=== PATIENT | female | born 1960 | race Caucasian/White ===

== ENCOUNTER 2017-03-29 15:47 | Inpatient (IN) | payer MEDICARE, MEDICAID ==
[2017-03-29] MEDS: SOD CHLORIDE 0.9% 1,000 ML IV ×2 (16:24)
[2017-03-29 16:30] LABS: ADD MAN DIFF? NO
[2017-03-29 16:36] LABS: BASOPHIL # 0.1 10^3/ul (0.0-0.1); BASOPHILS % 0.3 % (0.0-2.0); EOSINOPHILS # 0.7 10^3/ul (0.0-0.5); EOSINOPHILS % 3.9 % (0.0-7.0); HEMATOCRIT 30.2 % (37.0-47.0); HEMOGLOBIN 9.5 g/dl (12.0-16.0); LYMPHOCYTES # 1.4 10^3/ul (0.8-2.9); LYMPHOCYTES % 7.7 % (15.0-51.0); MEAN CORPUSCULAR HEMOGLOBIN 30.5 pg (29.0-33.0); MEAN CORPUSCULAR HGB CONC 31.5 g/dl (32.0-37.0); MEAN CORPUSCULAR VOLUME 97.1 fl (82.0-101.0); MEAN PLATELET VOLUME 8.8 fl (7.4-10.4); MONOCYTE # 0.8 10^3/ul (0.3-0.9); MONOCYTES % 4.6 % (0.0-11.0); NEUTROPHIL # 14.9 10^3/ul (1.6-7.5); NEUTROPHILS % 82.9 % (39.0-77.0); PLATELET COUNT 439 10^3/UL (140-415); RED BLOOD COUNT 3.11 10^6/ul (4.20-5.40); RED CELL DISTRIBUTION WIDTH 12.8 % (11.5-14.5)
[2017-03-29 16:49] LABS: LACTIC ACID 0.8 mmol/L (0.5-2.0)
[2017-03-29 16:51] LABS: INR 0.96; PROTIME 12.9 Sec (11.9-14.9)
[2017-03-29 16:52] LABS: PARTIAL THROMBOPLASTIN TIME 35.5 Sec (25.0-35.0)
[2017-03-29] MEDS: AZTREONAM 1 GM/NS (PMX) 50 ML IVPB (16:55)
[2017-03-29 16:56] LABS: ALANINE AMINOTRANSFERASE 28 IU/L (13-69); ALBUMIN 4.2 g/dl (3.3-4.9); ALBUMIN/GLOBULIN RATIO 1.05; ALKALINE PHOSPHATASE 72 IU/L (42-121); ANION GAP 17 (8-16); ASPARTATE AMINO TRANSFERASE 31 IU/L (15-46); BLOOD UREA NITROGEN 23 mg/dl (7-20); CALCIUM 9.6 mg/dl (8.4-10.2); CARBON DIOXIDE 30 mmol/L (21-31); CHLORIDE 99 mmol/L (97-110); CREATININE 0.99 mg/dl (0.44-1.00); GLUCOSE 103 mg/dl (70-220); POTASSIUM 4.8 mmol/L (3.5-5.1); SODIUM 141 mmol/L (135-144); TOTAL PROTEIN 8.2 g/dl (6.1-8.1)
[2017-03-29 17:10] LABS: TROPONIN-I < 0.012 ng/ml (0.00-0.12)
[2017-03-29] MEDS: VANCOMYCIN 1 GM (PMX) 250 ML IVPB (17:19)
[2017-03-29] MEDS ORDERED: ONDANSETRON 4 MG INJ IV (18:00)
[2017-03-29] MEDS ORDERED: ACETAMINOPHEN 325 MG TAB PO (18:00)
[2017-03-29] MEDS ORDERED: ACETAMINOPHEN 325 MG TAB GTB (18:00)
[2017-03-29] MEDS ORDERED: VANCOMYCIN IV PER PHARMACY XX (18:30)
[2017-03-29 19:32] LABS: AADO2 Arterial 164.3 mmHg (7.0-24.0); Allen Test ACCEPTAB; Arterial Base Excess -1.1 mmol/L (-3.0-3); Arterial COHb 0.3 % (0.0-3.0); Arterial Fraction of Oxyhgb 95.5 % (93.0-99.0); Arterial HCO3 28.8 mmol/L (22.0-26.0); Arterial MetHb 0.2 % (0.0-1.5); Arterial Total Hemglobin 10.7 g/dl (12.0-18.0); Arterial pCO2 81.1 mmhg (35-45); MODE VENT - AC; Site Right Radial
[2017-03-29] MEDS: LORAZEPAM 2 MG INJ IV (19:52)
[2017-03-29 20:44] LABS: LACTIC ACID 1.2 mmol/L (0.5-2.0)
[2017-03-29 22:00] LABS: Allen Test ACCEPTAB; Arterial Blood Gas Oxygen Sat 98.7 mmHG (95.0-98.0); Arterial COHb 0.3 % (0.0-3.0); Arterial Fraction of Oxyhgb 98.1 % (93.0-99.0); Arterial HCO3 28.7 mmol/L (22.0-26.0); Arterial MetHb 0.3 % (0.0-1.5); MODE VENT - AC; Site Right Radial
[2017-03-29 23:00] LABS: LACTIC ACID 1.3 mmol/L (0.5-2.0)
[2017-03-30 00:07] LABS: ADD UMIC YES; UR AMORPHOUS CRYSTAL FEW /HPF (NONE SEEN); UR ASCORBIC ACID 40 mg/dL (NEGATIVE); UR BACTERIA FEW /HPF (NONE SEEN); UR BILIRUBIN (Dip) NEGATIVE (NEGATIVE); UR BLOOD (Dip) 3+ mg/dL (NEGATIVE); UR CLARITY CLOUDY (CLEAR); UR COLOR YELLOW (YELLOW); UR GLUCOSE (Dip) NEGATIVE (NEGATIVE); UR KETONES (Dip) NEGATIVE (NEGATIVE); UR LEUKOCYTE ESTERASE (Dip) 2+ Leu/ul (NEGATIVE); UR MUCUS FEW /HPF (NONE SEEN); UR NITRITE (Dip) NEGATIVE (NEGATIVE); UR RBC > 182 /HPF (0-5); UR SPECIFIC GRAVITY (Dip) 1.015 (1.003-1.030); UR TOTAL PROTEIN (Dip) 2+ mg/dl (NEGATIVE); UR UROBILINOGEN (Dip) NEGATIVE (NEGATIVE); UR WBC 25 /HPF (0-5)
[2017-03-30] MEDS: ALBUTEROL/IPRATROPIUM (NEB) 3 ML AMP HHN ×6 (01:00→21:12)
[2017-03-30] MEDS: LORAZEPAM 2 MG INJ IV ×3 (01:31→20:33)
[2017-03-30] MEDS: METHYLPREDNISOLONE 125 MG INJ IV ×5 (01:41→23:52)
[2017-03-30] MEDS: AZTREONAM 1 GM/NS (PMX) 50 ML IVPB ×2 (03:44→12:04)
[2017-03-30] MEDS: VANCOMYCIN 750 MG in DEXTROSE 5% 150 ML IVPB ×2 (04:39→17:54)
[2017-03-30] MEDS: PANTOPRAZOLE (EC) 40 MG TAB PO ×2 (05:37→17:54)
[2017-03-30 07:58] LABS: ADD MAN DIFF? NO
[2017-03-30] MEDS ORDERED: ACETAMINOPHEN 325 MG TAB GTB (08:00)
[2017-03-30] MEDS ORDERED: NITROGLYCERIN (SL) 0.4 MG TAB SL (08:00)
[2017-03-30 08:16] LABS: WHITE BLOOD COUNT 15.8 10^3/ul (4.8-10.8)
[2017-03-30 08:16] LABS: ABNORMAL IP MESSAGE 1; HEMOGLOBIN 8.8 g/dl (12.0-16.0); MEAN CORPUSCULAR HEMOGLOBIN 31.2 pg (29.0-33.0); MEAN CORPUSCULAR HGB CONC 31.4 g/dl (32.0-37.0); MEAN CORPUSCULAR VOLUME 99.3 fl (82.0-101.0); MEAN PLATELET VOLUME 8.9 fl (7.4-10.4); PLATELET COUNT 318 10^3/UL (140-415); RED BLOOD COUNT 2.82 10^6/ul (4.20-5.40); RED CELL DISTRIBUTION WIDTH 12.6 % (11.5-14.5)
[2017-03-30 08:36] LABS: POSITIVE DIFF @See below
[2017-03-30 08:37] LABS: ANION GAP 16 (8-16); BLOOD UREA NITROGEN 22 mg/dl (7-20); CALCIUM 8.4 mg/dl (8.4-10.2); CARBON DIOXIDE 23 mmol/L (21-31); CHLORIDE 105 mmol/L (97-110); GLUCOSE 134 mg/dl (70-220); MAGNESIUM 1.6 mg/dl (1.7-2.5); PHOSPHORUS 3.8 mg/dl (2.5-4.9); POTASSIUM 4.1 mmol/L (3.5-5.1); SODIUM 140 mmol/L (135-144)
[2017-03-30] MEDS: LEVETIRACETAM (100 MG/ML) 5ML CUP GTB ×2 (10:36→21:07)
[2017-03-30] MEDS: FERROUS SULFATE 60 MG/ML 5ML CUP GTB ×2 (10:36→21:07)
[2017-03-30] MEDS: FOLIC ACID 1 MG TAB GTB (10:37)
[2017-03-30] MEDS: ASCORBIC ACID 500 MG TAB GTB (10:37)
[2017-03-30] MEDS: THIAMINE 100 MG TAB GTB (10:37)
[2017-03-30] MEDS: MULTIVITAMINS 30 ML CUP GTB (10:37)
[2017-03-30] MEDS: QUETIAPINE 25 MG TAB GTB ×2 (10:38→21:07)
[2017-03-30] MEDS: HEPARIN 5,000 UNIT/0.5 ML VIAL SC ×2 (10:43→21:09)
[2017-03-30] MEDS: HYDROCODONE/APAP (10/325) TAB GTB ×3 (10:49→22:10)
[2017-03-30] MEDS: BUDESONIDE (NEB) 0.5MG/2ML AMP INH ×2 (11:17→21:26)
[2017-03-30 13:55] LABS: LYMPHOCYTES #M 0.3 10^3/ul (0.8-2.9); LYMPHOCYTES % (M) 2 % (15-51); PLATELET ESTIMATE NORMAL; POLYCHROMASIA 1+ (0-0); REACTIVE LYMPHOCYTES #M 0.1 10^3/ul (0.0-0.0); REACTIVE LYMPHOCYTES% (M) 1 % (0-0); SEGMENTED NEUTROPHILS (M) % 97 % (39-77); SMUDGE%M 1 % (0-0); TOXIC GRANULATION 1+ (0-0)
[2017-03-30] MEDS: MEROPENEM 1 GM/50ML(PMX) 50 ML IVPB (21:00)
[2017-03-30] MEDS: ZINC OXIDE 20% 30 GM OINT TOP (21:07)
[2017-03-31] MEDS: LORAZEPAM 1 MG TAB GTB ×2 (00:14→21:16)
[2017-03-31] MEDS: ALBUTEROL/IPRATROPIUM (NEB) 3 ML AMP HHN ×6 (01:34→21:37)
[2017-03-31] MEDS: LORAZEPAM 2 MG INJ IV ×3 (04:05→16:13)
[2017-03-31] MEDS: HYDROCODONE/APAP (5/325) TAB GTB ×2 (04:06→17:30)
[2017-03-31] MEDS: VANCOMYCIN 750 MG in DEXTROSE 5% 150 ML IVPB ×2 (04:48→17:30)
[2017-03-31 05:44] LABS: AADO2 Arterial 127.2 mmHg (7.0-24.0); Allen Test ACCEPTAB; Arterial Base Excess -1.6 mmol/L (-3.0-3); Arterial Blood Gas Oxygen Sat 98.1 mmHG (95.0-98.0); Arterial COHb 0.3 % (0.0-3.0); Arterial Fraction of Oxyhgb 97.5 % (93.0-99.0); Arterial HCO3 23.3 mmol/L (22.0-26.0); Arterial MetHb 0.3 % (0.0-1.5); Arterial Total Hemglobin 7.7 g/dl (12.0-18.0); Blood Gas Low PEEP Setting 0 cmH2O; MODE VENT - AC; Site Right Radial
[2017-03-31] MEDS: METHYLPREDNISOLONE 125 MG INJ IV ×3 (05:45→17:30)
[2017-03-31] MEDS: PANTOPRAZOLE (EC) 40 MG TAB PO ×2 (05:45→17:30)
[2017-03-31] MEDS: LEVETIRACETAM (100 MG/ML) 5ML CUP GTB ×2 (09:21→21:00)
[2017-03-31] MEDS: MULTIVITAMINS 30 ML CUP GTB (09:21)
[2017-03-31] MEDS: HYDROCODONE/APAP (5/325) TAB PO ×2 (09:21→14:14)
[2017-03-31] MEDS: FERROUS SULFATE 60 MG/ML 5ML CUP GTB ×2 (09:21→21:00)
[2017-03-31] MEDS: ASCORBIC ACID 500 MG TAB GTB (09:21)
[2017-03-31] MEDS: ZINC OXIDE 20% 30 GM OINT TOP ×2 (09:21→21:05)
[2017-03-31] MEDS: FOLIC ACID 1 MG TAB GTB (09:22)
[2017-03-31] MEDS: QUETIAPINE 25 MG TAB GTB ×2 (09:22→21:01)
[2017-03-31] MEDS: THIAMINE 100 MG TAB GTB (09:22)
[2017-03-31] MEDS: HEPARIN 5,000 UNIT/0.5 ML VIAL SC ×2 (09:26→21:02)
[2017-03-31] MEDS: MEROPENEM 1 GM/50ML(PMX) 50 ML IVPB ×2 (09:28→21:06)
[2017-03-31] MEDS: BUDESONIDE (NEB) 0.5MG/2ML AMP INH ×2 (09:38→21:43)
[2017-03-31] MEDS: HYDROCODONE/APAP (10/325) TAB GTB ×2 (13:25→17:31)
[2017-03-31 16:33] LABS: ADD MAN DIFF? NO
[2017-03-31 16:42] LABS: WHITE BLOOD COUNT 9.7 10^3/ul (4.8-10.8)
[2017-03-31 16:42] LABS: ABNORMAL IP MESSAGE 1; HEMATOCRIT 25.1 % (37.0-47.0); LYMPHOCYTES # 0.3 10^3/ul (0.8-2.9); LYMPHOCYTES % 3.5 % (15.0-51.0); MEAN CORPUSCULAR HEMOGLOBIN 31.1 pg (29.0-33.0); MEAN CORPUSCULAR HGB CONC 31.9 g/dl (32.0-37.0); MEAN CORPUSCULAR VOLUME 97.7 fl (82.0-101.0); MEAN PLATELET VOLUME 9.2 fl (7.4-10.4); MONOCYTE # 0.2 10^3/ul (0.3-0.9); MONOCYTES % 2.2 % (0.0-11.0); NEUTROPHILS % 93.5 % (39.0-77.0); NUCLEATED RED BLOOD CELLS% 0.2 /100WBC (0.0-0.0); PLATELET COUNT 334 10^3/UL (140-415); RED BLOOD COUNT 2.57 10^6/ul (4.20-5.40); RED CELL DISTRIBUTION WIDTH 12.6 % (11.5-14.5)
[2017-03-31 16:53] LABS: POSITIVE DIFF @See below
[2017-03-31 17:03] LABS: LACTIC ACID 1.8 mmol/L (0.5-2.0)
[2017-03-31 17:09] LABS: ANION GAP 15 (8-16); BLOOD UREA NITROGEN 35 mg/dl (7-20); CALCIUM 9.1 mg/dl (8.4-10.2); CARBON DIOXIDE 23 mmol/L (21-31); CHLORIDE 107 mmol/L (97-110); CREATININE 0.83 mg/dl (0.44-1.00); GLUCOSE 146 mg/dl (70-220); MAGNESIUM 1.7 mg/dl (1.7-2.5); PHOSPHORUS 2.6 mg/dl (2.5-4.9); POTASSIUM 3.9 mmol/L (3.5-5.1); SODIUM 141 mmol/L (135-144)
[2017-03-31 17:13] LABS: VANCOMYCIN,TROUGH 18.3 ug/ml (10.0-20.0)
[2017-03-31 18:00] LABS: HIV 1&2 ANTIBODY NEGATIVE (NEGATIVE)
[2017-03-31 18:00] LABS: HEPATITIS C VIRAL ANTIBODY REACTIVE (NEGATIVE)
[2017-04-01] MEDS: METHYLPREDNISOLONE 125 MG INJ IV ×4 (00:34→17:26)
[2017-04-01] MEDS: ALBUTEROL/IPRATROPIUM (NEB) 3 ML AMP HHN ×6 (01:00→20:05)
[2017-04-01] MEDS: HYDROCODONE/APAP (5/325) TAB PO ×4 (04:50→18:05)
[2017-04-01] MEDS: VANCOMYCIN 750 MG in DEXTROSE 5% 150 ML IVPB (04:58)
[2017-04-01] MEDS: PANTOPRAZOLE (EC) 40 MG TAB PO ×2 (05:49→17:26)
[2017-04-01] MEDS: BUDESONIDE (NEB) 0.5MG/2ML AMP INH ×3 (08:26→21:16)
[2017-04-01] MEDS: LEVETIRACETAM (100 MG/ML) 5ML CUP GTB ×2 (08:56→21:06)
[2017-04-01] MEDS: FERROUS SULFATE 60 MG/ML 5ML CUP GTB ×2 (08:56→21:06)
[2017-04-01] MEDS: MULTIVITAMINS 30 ML CUP GTB (08:56)
[2017-04-01 08:57] LABS: ADD MAN DIFF? NO
[2017-04-01] MEDS: FOLIC ACID 1 MG TAB GTB (08:57)
[2017-04-01] MEDS: ZINC OXIDE 20% 30 GM OINT TOP ×2 (08:57→21:08)
[2017-04-01] MEDS: THIAMINE 100 MG TAB GTB (08:57)
[2017-04-01] MEDS: LORAZEPAM 2 MG INJ IV ×3 (08:57→21:08)
[2017-04-01] MEDS: ASCORBIC ACID 500 MG TAB GTB (08:57)
[2017-04-01] MEDS: QUETIAPINE 25 MG TAB GTB ×2 (08:57→21:06)
[2017-04-01] MEDS: HEPARIN 5,000 UNIT/0.5 ML VIAL SC ×2 (08:58→21:09)
[2017-04-01 09:13] LABS: WHITE BLOOD COUNT 7.1 10^3/ul (4.8-10.8)
[2017-04-01 09:13] LABS: ABNORMAL IP MESSAGE 1; HEMATOCRIT 25.7 % (37.0-47.0); HEMOGLOBIN 8.2 g/dl (12.0-16.0); LYMPHOCYTES # 0.5 10^3/ul (0.8-2.9); LYMPHOCYTES % 7.3 % (15.0-51.0); MEAN CORPUSCULAR HEMOGLOBIN 30.9 pg (29.0-33.0); MEAN CORPUSCULAR HGB CONC 31.9 g/dl (32.0-37.0); MEAN PLATELET VOLUME 9.3 fl (7.4-10.4); MONOCYTE # 0.2 10^3/ul (0.3-0.9); MONOCYTES % 3.2 % (0.0-11.0); NEUTROPHIL # 6.3 10^3/ul (1.6-7.5); NEUTROPHILS % 88.7 % (39.0-77.0); PLATELET COUNT 339 10^3/UL (140-415); RED BLOOD COUNT 2.65 10^6/ul (4.20-5.40); RED CELL DISTRIBUTION WIDTH 12.8 % (11.5-14.5)
[2017-04-01 09:21] LABS: POSITIVE DIFF @See below
[2017-04-01 09:36] LABS: ANION GAP 15 (8-16); BLOOD UREA NITROGEN 36 mg/dl (7-20); CALCIUM 9.1 mg/dl (8.4-10.2); CARBON DIOXIDE 25 mmol/L (21-31); CHLORIDE 106 mmol/L (97-110); CREATININE 0.71 mg/dl (0.44-1.00); GLUCOSE 124 mg/dl (70-220); MAGNESIUM 1.7 mg/dl (1.7-2.5); PHOSPHORUS 2.9 mg/dl (2.5-4.9); POTASSIUM 3.8 mmol/L (3.5-5.1); SODIUM 142 mmol/L (135-144)
[2017-04-01] MEDS: MEROPENEM 1 GM/50ML(PMX) 50 ML IVPB ×2 (11:13→21:11)
[2017-04-01] MEDS: AMLODIPINE 10 MG TAB GTB (11:14)
[2017-04-01] MEDS: INFLUENZA VIRUS VACCINE 0.5 ML (DISPENSING) IM* (11:15)
[2017-04-01] MEDS: MAGNESIUM SULFATE 2 GM/50 ML 50 ML IVPB (12:45)
[2017-04-01] MEDS: METOPROLOL 25 MG TAB PO ×2 (12:45→21:07)
[2017-04-01] MEDS: POTASSIUM CHLORIDE 20 MEQ POWDER FOR ORAL SOLN GTB (12:45)
[2017-04-01] MEDS: VANCOMYCIN 500MG/NS (PMX) 100 ML IVPB (17:26)
[2017-04-01] MEDS: LORAZEPAM 1 MG TAB GTB (18:05)
[2017-04-01] MEDS: MUPIROCIN 2% 22 GM OINT TOP (21:07)
[2017-04-01] MEDS ORDERED: VANCOMYCIN 1 GM 250 ML IVPB (22:00)
[2017-04-01] MEDS: ACETAMINOPHEN 650MG/20.3ML CUP GTB (22:03)
[2017-04-02] MEDS: ALBUTEROL/IPRATROPIUM (NEB) 3 ML AMP HHN ×6 (00:07→22:16)
[2017-04-02] MEDS: METHYLPREDNISOLONE 125 MG INJ IV ×4 (00:41→18:21)
[2017-04-02] MEDS: LORAZEPAM 1 MG TAB GTB ×3 (01:55→21:21)
[2017-04-02] MEDS: PANTOPRAZOLE (EC) 40 MG TAB PO ×2 (05:04→18:21)
[2017-04-02] MEDS: VANCOMYCIN 500MG/NS (PMX) 100 ML IVPB ×2 (05:05→18:22)
[2017-04-02] MEDS: HYDROCODONE/APAP (5/325) TAB PO ×3 (05:47→22:14)
[2017-04-02 08:37] LABS: ADD MAN DIFF? NO
[2017-04-02 08:41] LABS: ABNORMAL IP MESSAGE 1; BASOPHILS % 0.2 % (0.0-2.0); HEMATOCRIT 25.8 % (37.0-47.0); HEMOGLOBIN 8.5 g/dl (12.0-16.0); LYMPHOCYTES # 0.5 10^3/ul (0.8-2.9); LYMPHOCYTES % 8.5 % (15.0-51.0); MEAN CORPUSCULAR HEMOGLOBIN 31.5 pg (29.0-33.0); MEAN CORPUSCULAR HGB CONC 32.9 g/dl (32.0-37.0); MEAN CORPUSCULAR VOLUME 95.6 fl (82.0-101.0); MONOCYTE # 0.2 10^3/ul (0.3-0.9); MONOCYTES % 3.4 % (0.0-11.0); NEUTROPHIL # 5.4 10^3/ul (1.6-7.5); NEUTROPHILS % 86.3 % (39.0-77.0); PLATELET COUNT 318 10^3/UL (140-415); RED CELL DISTRIBUTION WIDTH 12.7 % (11.5-14.5)
[2017-04-02 08:41] LABS: WHITE BLOOD COUNT 6.2 10^3/ul (4.8-10.8)
[2017-04-02 08:48] LABS: POSITIVE DIFF @See below
[2017-04-02] MEDS: ASCORBIC ACID 500 MG TAB GTB (08:49)
[2017-04-02] MEDS: FOLIC ACID 1 MG TAB GTB (08:50)
[2017-04-02] MEDS: THIAMINE 100 MG TAB GTB (08:50)
[2017-04-02] MEDS: METOPROLOL 25 MG TAB PO ×2 (08:50→21:21)
[2017-04-02] MEDS: LEVETIRACETAM (100 MG/ML) 5ML CUP GTB ×2 (08:51→21:20)
[2017-04-02] MEDS: FERROUS SULFATE 60 MG/ML 5ML CUP GTB ×2 (08:51→21:20)
[2017-04-02] MEDS: QUETIAPINE 25 MG TAB GTB ×2 (08:51→21:20)
[2017-04-02] MEDS: AMLODIPINE 10 MG TAB GTB (08:51)
[2017-04-02] MEDS: MULTIVITAMINS 30 ML CUP GTB (08:51)
[2017-04-02] MEDS: ZINC OXIDE 20% 30 GM OINT TOP ×2 (08:52→21:22)
[2017-04-02] MEDS: MUPIROCIN 2% 22 GM OINT TOP ×2 (08:52→21:22)
[2017-04-02] MEDS: HEPARIN 5,000 UNIT/0.5 ML VIAL SC ×2 (09:07→21:33)
[2017-04-02 09:16] LABS: ANION GAP 16 (8-16); BLOOD UREA NITROGEN 30 mg/dl (7-20); CALCIUM 8.5 mg/dl (8.4-10.2); CARBON DIOXIDE 24 mmol/L (21-31); CHLORIDE 107 mmol/L (97-110); CREATININE 0.69 mg/dl (0.44-1.00); GLUCOSE 119 mg/dl (70-220); MAGNESIUM 2.1 mg/dl (1.7-2.5); PHOSPHORUS 2.9 mg/dl (2.5-4.9); POTASSIUM 3.8 mmol/L (3.5-5.1); SODIUM 143 mmol/L (135-144)
[2017-04-02] MEDS: MEROPENEM 1 GM/50ML(PMX) 50 ML IVPB ×2 (09:18→22:14)
[2017-04-02] MEDS: LORAZEPAM 2 MG INJ IV ×2 (09:18→18:21)
[2017-04-02] MEDS: HYDROCODONE/APAP (10/325) TAB GTB ×2 (10:40→14:33)
[2017-04-02] MEDS: BUDESONIDE (NEB) 0.5MG/2ML AMP INH ×2 (11:29→22:17)
[2017-04-03] MEDS: METHYLPREDNISOLONE 125 MG INJ IV ×3 (00:21→11:23)
[2017-04-03] MEDS: LORAZEPAM 2 MG INJ IV ×2 (00:21→06:10)
[2017-04-03] MEDS: ALBUTEROL/IPRATROPIUM (NEB) 3 ML AMP HHN ×5 (01:35→16:30)
[2017-04-03 05:50] LABS: VANCOMYCIN,TROUGH 12.2 ug/ml (10.0-20.0)
[2017-04-03] MEDS: PANTOPRAZOLE (EC) 40 MG TAB PO (06:10)
[2017-04-03] MEDS: HYDROCODONE/APAP (5/325) TAB PO (06:10)
[2017-04-03] MEDS: VANCOMYCIN 500MG/NS (PMX) 100 ML IVPB ×2 (06:12→16:08)
[2017-04-03] MEDS: BUDESONIDE (NEB) 0.5MG/2ML AMP INH (08:54)
[2017-04-03] MEDS: LIDOCAINE 5% PATCH TD (09:48)
[2017-04-03] MEDS: LEVETIRACETAM (100 MG/ML) 5ML CUP GTB (09:49)
[2017-04-03] MEDS: FERROUS SULFATE 60 MG/ML 5ML CUP GTB (09:49)
[2017-04-03] MEDS: MEROPENEM 1 GM/50ML(PMX) 50 ML IVPB (09:50)
[2017-04-03] MEDS: MULTIVITAMINS 30 ML CUP GTB (09:50)
[2017-04-03] MEDS: AMLODIPINE 10 MG TAB GTB (09:50)
[2017-04-03] MEDS: FOLIC ACID 1 MG TAB GTB (09:50)
[2017-04-03] MEDS: QUETIAPINE 25 MG TAB GTB (09:50)
[2017-04-03] MEDS: THIAMINE 100 MG TAB GTB (09:50)
[2017-04-03] MEDS: METOPROLOL 25 MG TAB PO (09:51)
[2017-04-03] MEDS: ASCORBIC ACID 500 MG TAB GTB (09:51)
[2017-04-03] MEDS: MUPIROCIN 2% 22 GM OINT TOP (09:52)
[2017-04-03] MEDS: ZINC OXIDE 20% 30 GM OINT TOP (09:52)
[2017-04-03] MEDS: HEPARIN 5,000 UNIT/0.5 ML VIAL SC (09:53)
[2017-04-03] MEDS: HYDROCODONE/APAP (5/325) TAB GTB ×2 (11:09→16:08)
== END 2017-04-03 18:20 | disposition short-term general hospital (02) | DRG 870 ==
LOC: TEL 17:48 → E/R 15:47
PROC: 5A1955Z Respiratory Ventilation, Greater than 96 Consecutive Hours (ICD-10-PCS; principal; 2017-03-29)
DX: A41.9 Sepsis, unspecified organism (principal); J96.21 Acute and chronic respiratory failure with hypoxia; J18.9 Pneumonia, unspecified organism; Z99.11 Dependence on respirator [ventilator] status; J44.0 Chronic obstructive pulmonary disease with (acute) lower respiratory infection; J44.1 Chronic obstructive pulmonary disease with (acute) exacerbation; Z93.0 Tracheostomy status; R13.10 Dysphagia, unspecified; J96.22 Acute and chronic respiratory failure with hypercapnia; L03.311 Cellulitis of abdominal wall; I47.1 Supraventricular tachycardia; N39.0 Urinary tract infection, site not specified; G40.909 Epilepsy, unspecified, not intractable, without status epilepticus; F10.21 Alcohol dependence, in remission; F41.9 Anxiety disorder, unspecified; D64.9 Anemia, unspecified; G89.29 Other chronic pain; Z93.1 Gastrostomy status; K94.29 Other complications of gastrostomy; Y73.8 Miscellaneous gastroenterology and urology devices associated with adverse incidents, not elsewhere classified; I10 Essential (primary) hypertension; Z88.0 Allergy status to penicillin; M81.0 Age-related osteoporosis without current pathological fracture
CPT/HCPCS: 36415; 36600; 71010; 71100; 80048; 80053; 80202; 81001; 82803; 83605; 83735; 84100; 84484; 85025; 85610; 85730; 86703; 86803; 87040; 87081; 87086; 90686; 93005; 93306; 94002; 94003; 94640; 94664; 96374; 96375; 99291-25

== ENCOUNTER 2017-05-03 11:47 | Day surgery (SDC) | payer OTHER ==
[2017-05-03] MEDS ORDERED: ROCURONIUM 50 MG INJ (14:01)
[2017-05-03] MEDS ORDERED: SUGAMMADEX SODIUM 200 MG/2 ML VIAL IV (14:19)
[2017-05-03] MEDS ORDERED: CEFAZOLIN 1 GM INJ (14:36)
[2017-05-03] MEDS ORDERED: FENTAnyl 50 MCG/ML VIAL (14:56)
[2017-05-03] MEDS ORDERED: FENTAnyl 50 MCG/ML VIAL IV (15:00)
[2017-05-03] MEDS ORDERED: HYDROmorphONE (0.2 MG/ML) 10ML SYG IV (15:00)
[2017-05-03] MEDS: FENTAnyl 50 MCG/ML VIAL IV ×2 (15:07→15:17)
[2017-05-03] MEDS ORDERED: hydrALAzine 20 MG INJ (15:13)
[2017-05-03] MEDS ORDERED: hydrALAzine 20 MG INJ IV (15:30)
[2017-05-03] MEDS: HYDROmorphONE (0.2 MG/ML) 10ML SYG IV (15:32)
== END 2017-05-03 15:45 ==
LOC: SDS 15:45
DX: J69.0 Pneumonitis due to inhalation of food and vomit (principal); G40.909 Epilepsy, unspecified, not intractable, without status epilepticus; Z99.81 Dependence on supplemental oxygen; J44.9 Chronic obstructive pulmonary disease, unspecified; I10 Essential (primary) hypertension
CPT/HCPCS: 43246; 94002

== ENCOUNTER 2017-05-07 10:27 | Day surgery (SDC) | payer OTHER ==
[2017-05-07] MEDS ORDERED: LIDOCAINE 1%/EPI 30 ML INJ (10:50)
[2017-05-07] MEDS ORDERED: POLYMYXIN/BACITRACIN 1L IRRIG IRR (11:00)
[2017-05-07] MEDS ORDERED: LIDOCAINE 1% (MDV) 20 ML INJ INJ (11:30)
[2017-05-07] MEDS ORDERED: FAMOTIDINE 20 MG INJ IV (11:30)
[2017-05-07] MEDS ORDERED: METHYLPREDNISOLONE 125 MG INJ IV (11:30)
[2017-05-07] MEDS ORDERED: VANCOMYCIN 1 GM 250 ML IVPB (14:00)
[2017-05-07] MEDS ORDERED: FENTAnyl 50 MCG/ML VIAL (14:13)
[2017-05-07] MEDS ORDERED: MIDAZOLAM 1 MG/ML 2 ML INJ ×2 (14:14→14:22)
[2017-05-07] MEDS ORDERED: ETOMIDATE 20 MG INJ (14:19)
[2017-05-07] MEDS ORDERED: PROPOFOL 20 ML ×2 (14:22→15:38)
[2017-05-07] MEDS ORDERED: PROPOFOL 60 ML (14:25)
[2017-05-07] MEDS ORDERED: DIPHENHYDRAMINE 50 MG INJ IV (16:00)
[2017-05-07] MEDS ORDERED: hydrALAzine 20 MG INJ IV (16:00)
[2017-05-07] MEDS ORDERED: LABETALOL HCL 20MG INJ IV (16:00)
[2017-05-07] MEDS ORDERED: LORAZEPAM 2 MG INJ IV (16:00)
[2017-05-07] MEDS ORDERED: VANCOMYCIN IV PER PHARMACY XX (16:00)
[2017-05-07] MEDS ORDERED: HYDROmorphONE (0.2 MG/ML) 10ML SYG IV ×2 (16:00)
[2017-05-07] MEDS ORDERED: HALOPERIDOL 5 MG INJ IV (16:00)
[2017-05-07] MEDS ORDERED: morphine 2 MG INJ IV (16:00)
[2017-05-07] MEDS ORDERED: METOCLOPRAMIDE 10 MG INJ IV (16:00)
[2017-05-07] MEDS ORDERED: MIDAZOLAM 1 MG/ML 2 ML INJ IV (16:00)
[2017-05-07] MEDS ORDERED: IPRATROPIUM (NEB) 0.5 MG/2.5 ML AMP HHN (16:00)
[2017-05-07] MEDS ORDERED: ONDANSETRON 4 MG INJ IV (16:00)
[2017-05-07] MEDS ORDERED: FENTAnyl 50 MCG/ML VIAL IV (16:00)
[2017-05-07] MEDS: FENTAnyl 50 MCG/ML VIAL IV (16:34)
[2017-05-07] MEDS ORDERED: SOD CHLORIDE 0.9% 1,000 ML IV (18:00)
[2017-05-07] MEDS ORDERED: METOPROLOL 25 MG TAB PO (21:00)
== END 2017-05-07 17:18 ==
LOC: SDS 10:27
DX: I49.5 Sick sinus syndrome (principal); E11.9 Type 2 diabetes mellitus without complications; J45.909 Unspecified asthma, uncomplicated; E78.5 Hyperlipidemia, unspecified; J44.9 Chronic obstructive pulmonary disease, unspecified; I50.9 Heart failure, unspecified; I10 Essential (primary) hypertension
CPT/HCPCS: 33207; 71045; 93005; 94002

== ENCOUNTER 2017-05-07 19:06 | Inpatient (IN) | payer MEDICARE, MEDICAID ==
[2017-05-07] MEDS: DOXYCYCLINE 100 MG in DEXTROSE 5% 250 ML IVPB
[2017-05-07] MEDS ORDERED: ACETAMINOPHEN 650MG/20.3ML CUP GTB (20:00)
[2017-05-07] MEDS ORDERED: METOPROLOL 5 MG INJ IV (20:00)
[2017-05-07] MEDS ORDERED: LORAZEPAM 2 MG INJ IV (20:00)
[2017-05-07] MEDS ORDERED: EPINEPHrine 0.1 MG/ML SYG (20:15)
[2017-05-07] MEDS ORDERED: LIDOCAINE 1% (MDV) 20 ML INJ (20:15)
[2017-05-07] MEDS: LIDOCAINE 1%/EPI 30 ML INJ INJ (20:16)
[2017-05-07] MEDS ORDERED: PROPOFOL 0 ML (20:28)
[2017-05-07] MEDS ORDERED: LIDOCAINE 2%/EPI MPF (SDV) 20 ML VIAL INJ (20:30)
[2017-05-07] MEDS ORDERED: LIDOCAINE 2%/EPI (MDV) 20ML INJ INJ (20:30)
[2017-05-07] MEDS ORDERED: ALBUTEROL/IPRATROPIUM (NEB) 3 ML AMP HHN (21:00)
[2017-05-07] MEDS ORDERED: HEPARIN 5,000 UNIT/0.5 ML VIAL SC (21:00)
[2017-05-07] MEDS ORDERED: HYDROCODONE/APAP (5/325) TAB NGT (21:00)
[2017-05-07] MEDS: HEPARIN 5,000 UNIT/0.5 ML VIAL SC (22:00)
[2017-05-07] MEDS: FERROUS SULFATE 60 MG/ML 5ML CUP GTB (23:16)
[2017-05-07] MEDS: METOPROLOL 25 MG TAB GTB (23:19)
[2017-05-07] MEDS: LORAZEPAM 2 MG INJ IV (23:19)
[2017-05-07] MEDS: ERTAPENEM SODIUM 1 GM in SOD CHLORIDE 0.9% 100 ML IVPB (23:21)
[2017-05-07] MEDS: SOD CHLORIDE 0.9% 1,000 ML IV (23:57)
[2017-05-08] MEDS: ALBUTEROL HFA 8 GM INHALER INH ×6 (01:00→20:50)
[2017-05-08] MEDS: IPRATROPIUM (HFA) 12.9 GM INHALER INH ×6 (01:00→20:50)
[2017-05-08] MEDS: ACETYLCYSTEINE 20% 4 ML VIAL NEB ×3 (01:11→16:40)
[2017-05-08] MEDS: VANCOMYCIN 750 MG in DEXTROSE 5% 150 ML IVPB ×2 (01:48→09:19)
[2017-05-08] MEDS: LORAZEPAM 2 MG INJ IV ×3 (04:20→14:29)
[2017-05-08] MEDS: METHYLPREDNISOLONE 40 MG INJ IV ×3 (05:42→22:01)
[2017-05-08] MEDS: HYDROCODONE/APAP (5/325) TAB GTB ×3 (05:42→12:54)
[2017-05-08 05:55] LABS: ADD MAN DIFF? NO
[2017-05-08 05:59] LABS: WHITE BLOOD COUNT 15.7 10^3/ul (4.8-10.8)
[2017-05-08 05:59] LABS: BASOPHILS % 0.1 % (0.0-2.0); HEMOGLOBIN 11.1 g/dl (12.0-16.0); LYMPHOCYTES # 1.6 10^3/ul (0.8-2.9); LYMPHOCYTES % 10.4 % (15.0-51.0); MEAN CORPUSCULAR HEMOGLOBIN 32.1 pg (29.0-33.0); MEAN CORPUSCULAR HGB CONC 33.6 g/dl (32.0-37.0); MEAN CORPUSCULAR VOLUME 95.4 fl (82.0-101.0); MEAN PLATELET VOLUME 8.7 fl (7.4-10.4); MONOCYTE # 1.1 10^3/ul (0.3-0.9); MONOCYTES % 6.7 % (0.0-11.0); NEUTROPHIL # 12.9 10^3/ul (1.6-7.5); NEUTROPHILS % 81.8 % (39.0-77.0); PLATELET COUNT 222 10^3/UL (140-415); RED BLOOD COUNT 3.46 10^6/ul (4.20-5.40); RED CELL DISTRIBUTION WIDTH 13.4 % (11.5-14.5)
[2017-05-08 06:24] LABS: ANION GAP 12 (8-16); BLOOD UREA NITROGEN 16 mg/dl (7-20); CALCIUM 9.3 mg/dl (8.4-10.2); CARBON DIOXIDE 24 mmol/L (21-31); CHLORIDE 109 mmol/L (97-110); GLUCOSE 66 mg/dl (70-220); POTASSIUM 3.6 mmol/L (3.5-5.1); SODIUM 141 mmol/L (135-144)
[2017-05-08 08:25] LABS: AADO2 Arterial 115.5 mmHg (7.0-24.0); Arterial Base Excess 0.4 mmol/L (-3.0-3); Arterial COHb 0.3 % (0.0-3.0); Arterial Fraction of Oxyhgb 98.5 % (93.0-99.0); Arterial HCO3 23.5 mmol/L (22.0-26.0); Arterial MetHb 0.2 % (0.0-1.5); Arterial Total Hemglobin 12.2 g/dl (12.0-18.0); MODE VENT - AC; Site Right Brachial
[2017-05-08] MEDS: SOD CHLORIDE 0.9% 1,000 ML IV ×2 (08:37→14:50)
[2017-05-08] MEDS: FLUCONAZOLE 100 MG TAB GTB (08:37)
[2017-05-08] MEDS: FERROUS SULFATE 60 MG/ML 5ML CUP GTB ×2 (08:37→20:30)
[2017-05-08] MEDS: DULOXETINE 30 MG CAP DR GTB (08:37)
[2017-05-08] MEDS: FOLIC ACID 1 MG TAB GTB (08:38)
[2017-05-08] MEDS: ASCORBIC ACID 500 MG TAB GTB (08:38)
[2017-05-08] MEDS: QUETIAPINE 25 MG TAB GTB ×2 (08:38→20:30)
[2017-05-08] MEDS: MULTIVITAMINS THERAPEUTIC TAB PO (08:38)
[2017-05-08] MEDS: METOPROLOL 25 MG TAB GTB ×2 (08:38→20:30)
[2017-05-08] MEDS: THIAMINE 100 MG TAB GTB (08:39)
[2017-05-08] MEDS: GENTAMICIN 0.1% 15 GM OINT TOP ×2 (08:40→21:12)
[2017-05-08] MEDS: HEPARIN 5,000 UNIT/0.5 ML VIAL SC ×2 (08:41→20:35)
[2017-05-08] MEDS ORDERED: AMLODIPINE 10 MG TAB GTB (09:00)
[2017-05-08] MEDS: DOXYCYCLINE 100 MG in DEXTROSE 5% 250 ML IVPB ×2 (09:00→21:12)
[2017-05-08] MEDS ORDERED: VANCOMYCIN 1 GM (PMX) 250 ML IVPB (09:00)
[2017-05-08] MEDS: morphine LIQ (10 MG/5 ML) CUP GTB ×2 (09:15→15:37)
[2017-05-08] MEDS: LEVETIRACETAM 1000 MG (PMX) 100 ML IVPB ×2 (09:25→21:12)
[2017-05-08] MEDS: DILTIAZEM 30 MG TAB PO ×3 (10:31→18:51)
[2017-05-08] MEDS: POTASSIUM CHLORIDE 20 MEQ POWDER FOR ORAL SOLN GTB (10:32)
[2017-05-08] MEDS ORDERED: DOXYCYCLINE 100 MG in DEXTROSE 5% 250 ML IVPB (10:48)
[2017-05-08] MEDS: BUDESONIDE (NEB) 0.5MG/2ML AMP HHN ×2 (11:39→20:50)
[2017-05-08] MEDS: LIDOCAINE 1% (MPF) 5 ML VIAL SC (15:00)
[2017-05-08] MEDS: ERTAPENEM SODIUM 1 GM in SOD CHLORIDE 0.9% 100 ML IVPB (20:30)
[2017-05-09] MEDS: SOD CHLORIDE 0.9% 1,000 ML IV ×4 (00:38→21:54)
[2017-05-09] MEDS: DILTIAZEM 30 MG TAB PO ×4 (00:38→16:32)
[2017-05-09] MEDS: ACETYLCYSTEINE 20% 4 ML VIAL NEB ×2 (01:14→09:50)
[2017-05-09] MEDS: IPRATROPIUM (HFA) 12.9 GM INHALER INH ×6 (01:14→20:47)
[2017-05-09] MEDS: ALBUTEROL HFA 8 GM INHALER INH ×6 (01:14→20:47)
[2017-05-09] MEDS: LORAZEPAM 2 MG INJ IV ×4 (03:14→20:13)
[2017-05-09] MEDS: HYDROCODONE/APAP (5/325) TAB GTB ×5 (04:47→21:54)
[2017-05-09 05:46] LABS: ADD MAN DIFF? NO
[2017-05-09] MEDS: METHYLPREDNISOLONE 40 MG INJ IV ×3 (05:53→21:53)
[2017-05-09 06:15] LABS: WHITE BLOOD COUNT 7.7 10^3/ul (4.8-10.8)
[2017-05-09 06:15] LABS: ABNORMAL IP MESSAGE 1; HEMATOCRIT 29.4 % (37.0-47.0); HEMOGLOBIN 10.2 g/dl (12.0-16.0); LYMPHOCYTES # 0.5 10^3/ul (0.8-2.9); LYMPHOCYTES % 6.3 % (15.0-51.0); MEAN CORPUSCULAR HGB CONC 34.7 g/dl (32.0-37.0); MEAN CORPUSCULAR VOLUME 95.1 fl (82.0-101.0); MEAN PLATELET VOLUME 9.1 fl (7.4-10.4); MONOCYTE # 0.3 10^3/ul (0.3-0.9); NEUTROPHIL # 6.8 10^3/ul (1.6-7.5); NEUTROPHILS % 88.8 % (39.0-77.0); PLATELET COUNT 187 10^3/UL (140-415); RED BLOOD COUNT 3.09 10^6/ul (4.20-5.40); RED CELL DISTRIBUTION WIDTH 13.3 % (11.5-14.5)
[2017-05-09 06:23] LABS: ALANINE AMINOTRANSFERASE 43 IU/L (13-69); ALBUMIN 3.2 g/dl (3.3-4.9); ALKALINE PHOSPHATASE 49 IU/L (42-121); ASPARTATE AMINO TRANSFERASE 17 IU/L (15-46); TOTAL PROTEIN 5.4 g/dl (6.1-8.1)
[2017-05-09 06:24] LABS: POSITIVE DIFF @See below
[2017-05-09 06:28] LABS: PHOSPHORUS 3.1 mg/dl (2.5-4.9)
[2017-05-09 06:28] LABS: MAGNESIUM 1.6 mg/dl (1.7-2.5)
[2017-05-09 06:32] LABS: ALANINE AMINOTRANSFERASE 41 IU/L (13-69); ALBUMIN 3.2 g/dl (3.3-4.9); ALBUMIN/GLOBULIN RATIO 1.18; ALKALINE PHOSPHATASE 50 IU/L (42-121); ANION GAP 11 (8-16); ASPARTATE AMINO TRANSFERASE 19 IU/L (15-46); BLOOD UREA NITROGEN 18 mg/dl (7-20); CALCIUM 8.9 mg/dl (8.4-10.2); CARBON DIOXIDE 27 mmol/L (21-31); CHLORIDE 108 mmol/L (97-110); CREATININE 0.53 mg/dl (0.44-1.00); GLUCOSE 167 mg/dl (70-220); POTASSIUM 4.2 mmol/L (3.5-5.1); SODIUM 142 mmol/L (135-144); TOTAL PROTEIN 5.9 g/dl (6.1-8.1)
[2017-05-09] MEDS: METOPROLOL 25 MG TAB GTB ×2 (09:00→20:15)
[2017-05-09] MEDS: HEPARIN 5,000 UNIT/0.5 ML VIAL SC ×2 (09:00→20:18)
[2017-05-09] MEDS: MAGNESIUM SULFATE 2 GM/50 ML 50 ML IVPB (09:53)
[2017-05-09] MEDS: FLUCONAZOLE 100 MG TAB GTB (09:55)
[2017-05-09] MEDS: DULOXETINE 30 MG CAP DR GTB (09:55)
[2017-05-09] MEDS: FERROUS SULFATE 60 MG/ML 5ML CUP GTB ×2 (09:55→20:13)
[2017-05-09] MEDS: morphine LIQ (10 MG/5 ML) CUP GTB ×3 (09:55→22:45)
[2017-05-09] MEDS: FOLIC ACID 1 MG TAB GTB (09:55)
[2017-05-09] MEDS: MULTIVITAMINS THERAPEUTIC TAB PO (09:55)
[2017-05-09] MEDS: THIAMINE 100 MG TAB GTB (09:55)
[2017-05-09] MEDS: QUETIAPINE 25 MG TAB GTB ×2 (09:55→20:14)
[2017-05-09] MEDS: GENTAMICIN 0.1% 15 GM OINT TOP ×2 (09:59→20:14)
[2017-05-09] MEDS: DOXYCYCLINE 100 MG in DEXTROSE 5% 250 ML IVPB (10:00)
[2017-05-09] MEDS: ASCORBIC ACID 500 MG TAB GTB (10:16)
[2017-05-09] MEDS: LEVETIRACETAM 1000 MG (PMX) 100 ML IVPB ×2 (10:18→20:13)
[2017-05-09] MEDS: BUDESONIDE (NEB) 0.5MG/2ML AMP HHN ×2 (11:52→20:47)
[2017-05-10] MEDS: ALBUTEROL HFA 8 GM INHALER INH ×6 (01:19→21:10)
[2017-05-10] MEDS: IPRATROPIUM (HFA) 12.9 GM INHALER INH ×6 (01:19→21:10)
[2017-05-10] MEDS: DILTIAZEM 30 MG TAB PO ×4 (05:14→17:50)
[2017-05-10] MEDS: METHYLPREDNISOLONE 40 MG INJ IV ×3 (05:33→21:20)
[2017-05-10] MEDS: LORAZEPAM 2 MG INJ IV ×4 (05:40→18:20)
[2017-05-10] MEDS: morphine LIQ (10 MG/5 ML) CUP GTB ×3 (06:30→23:28)
[2017-05-10] MEDS: SOD CHLORIDE 0.9% 1,000 ML IV (06:31)
[2017-05-10] MEDS: DULOXETINE 30 MG CAP DR GTB (08:47)
[2017-05-10] MEDS: FERROUS SULFATE 60 MG/ML 5ML CUP GTB ×2 (08:47→21:20)
[2017-05-10] MEDS: FLUCONAZOLE 100 MG TAB GTB (08:49)
[2017-05-10] MEDS: THIAMINE 100 MG TAB GTB (08:49)
[2017-05-10] MEDS: ASCORBIC ACID 500 MG TAB GTB (08:49)
[2017-05-10] MEDS: FOLIC ACID 1 MG TAB GTB (08:49)
[2017-05-10] MEDS: QUETIAPINE 25 MG TAB GTB ×2 (08:50→21:20)
[2017-05-10] MEDS: MULTIVITAMINS THERAPEUTIC TAB PO (08:58)
[2017-05-10] MEDS: METOPROLOL 25 MG TAB GTB ×2 (09:00→21:00)
[2017-05-10] MEDS: LEVETIRACETAM 1000 MG (PMX) 100 ML IVPB ×2 (09:05→21:23)
[2017-05-10] MEDS: GENTAMICIN 0.1% 15 GM OINT TOP ×2 (09:20→21:21)
[2017-05-10] MEDS: HEPARIN 5,000 UNIT/0.5 ML VIAL SC ×2 (09:20→21:32)
[2017-05-10] MEDS: BUDESONIDE (NEB) 0.5MG/2ML AMP HHN ×2 (09:23→19:15)
[2017-05-10] MEDS: SENNA TAB PO (12:46)
[2017-05-11] MEDS: LORAZEPAM 2 MG INJ IV ×3 (00:15→11:03)
[2017-05-11] MEDS: DILTIAZEM 30 MG TAB PO ×4 (00:15→17:43)
[2017-05-11] MEDS: ALBUTEROL HFA 8 GM INHALER INH ×6 (01:13→20:46)
[2017-05-11] MEDS: IPRATROPIUM (HFA) 12.9 GM INHALER INH ×6 (01:13→20:46)
[2017-05-11] MEDS: METHYLPREDNISOLONE 40 MG INJ IV ×3 (06:00→21:19)
[2017-05-11] MEDS: LEVETIRACETAM 1000 MG (PMX) 100 ML IVPB ×2 (08:21→21:23)
[2017-05-11] MEDS: FERROUS SULFATE 60 MG/ML 5ML CUP GTB ×2 (08:21→21:17)
[2017-05-11] MEDS: ASCORBIC ACID 500 MG TAB GTB (08:22)
[2017-05-11] MEDS: MULTIVITAMINS THERAPEUTIC TAB PO (08:22)
[2017-05-11] MEDS: METOPROLOL 25 MG TAB GTB ×2 (08:22→21:18)
[2017-05-11] MEDS: QUETIAPINE 25 MG TAB GTB ×2 (08:22→21:17)
[2017-05-11] MEDS: FLUCONAZOLE 100 MG TAB GTB (08:22)
[2017-05-11] MEDS: THIAMINE 100 MG TAB GTB (08:22)
[2017-05-11] MEDS: FOLIC ACID 1 MG TAB GTB (08:22)
[2017-05-11] MEDS: GENTAMICIN 0.1% 15 GM OINT TOP ×2 (08:23→21:00)
[2017-05-11] MEDS: morphine LIQ (10 MG/5 ML) CUP GTB ×2 (08:23→16:17)
[2017-05-11] MEDS: DULOXETINE 30 MG CAP DR GTB (08:23)
[2017-05-11] MEDS: HEPARIN 5,000 UNIT/0.5 ML VIAL SC ×2 (09:05→21:20)
[2017-05-11] MEDS: BUDESONIDE (NEB) 0.5MG/2ML AMP HHN ×2 (10:37→20:00)
[2017-05-11] MEDS: HYDROCODONE/APAP (5/325) TAB GTB ×2 (12:13→21:24)
[2017-05-11 12:15] LABS: WHITE BLOOD COUNT 7.7 10^3/ul (4.8-10.8)
[2017-05-11 12:15] LABS: ABNORMAL IP MESSAGE 1; HEMATOCRIT 30.4 % (37.0-47.0); HEMOGLOBIN 10.3 g/dl (12.0-16.0); MEAN CORPUSCULAR HEMOGLOBIN 32.3 pg (29.0-33.0); MEAN CORPUSCULAR HGB CONC 33.9 g/dl (32.0-37.0); MEAN CORPUSCULAR VOLUME 95.3 fl (82.0-101.0); MEAN PLATELET VOLUME 9.9 fl (7.4-10.4); RED BLOOD COUNT 3.19 10^6/ul (4.20-5.40)
[2017-05-11 12:19] LABS: POSITIVE DIFF @See below
[2017-05-11 12:20] LABS: ADD MAN DIFF? YES
[2017-05-11 12:54] LABS: ANION GAP 11 (8-16); BLOOD UREA NITROGEN 22 mg/dl (7-20); CALCIUM 9.3 mg/dl (8.4-10.2); CARBON DIOXIDE 27 mmol/L (21-31); CHLORIDE 106 mmol/L (97-110); CREATININE 0.41 mg/dl (0.44-1.00); GLUCOSE 135 mg/dl (70-220); MAGNESIUM 1.8 mg/dl (1.7-2.5); PHOSPHORUS 3.3 mg/dl (2.5-4.9); POTASSIUM 4.8 mmol/L (3.5-5.1); SODIUM 139 mmol/L (135-144)
[2017-05-11 14:09] LABS: BAND NEUTROPHILS % (M) 1 % (0-4); LYMPHOCYTES #M 0.3 10^3/ul (0.8-2.9); LYMPHOCYTES % (M) 5 % (15-51); MONOCYTES % (M) 1 % (0-11); OVALOCYTES 1+ (0-0); PLATELET COUNT 90 10^3/UL (140-415); PLATELET ESTIMATE DECREASED; POLYCHROMASIA 1+ (0-0); SEG NEUT #M 7.2 10^3/ul (1.6-7.5); SEGMENTED NEUTROPHILS (M) % 93 % (39-77); SMUDGE%M 5 % (0-0)
[2017-05-12] MEDS: IPRATROPIUM (HFA) 12.9 GM INHALER INH ×6 (00:57→20:18)
[2017-05-12] MEDS: ALBUTEROL HFA 8 GM INHALER INH ×6 (00:58→20:18)
[2017-05-12] MEDS: LORAZEPAM 2 MG INJ IV ×2 (01:20→12:39)
[2017-05-12] MEDS: METHYLPREDNISOLONE 40 MG INJ IV ×3 (05:07→21:29)
[2017-05-12] MEDS: DILTIAZEM 30 MG TAB PO ×4 (05:09→17:38)
[2017-05-12] MEDS: DULOXETINE 30 MG CAP DR GTB (08:55)
[2017-05-12] MEDS: MULTIVITAMINS THERAPEUTIC TAB PO (08:55)
[2017-05-12] MEDS: ASCORBIC ACID 500 MG TAB GTB (08:55)
[2017-05-12] MEDS: FLUCONAZOLE 100 MG TAB GTB (08:55)
[2017-05-12] MEDS: METOPROLOL 25 MG TAB GTB ×2 (08:56→20:22)
[2017-05-12] MEDS: QUETIAPINE 25 MG TAB GTB ×2 (08:56→20:22)
[2017-05-12] MEDS: GENTAMICIN 0.1% 15 GM OINT TOP ×2 (08:57→20:30)
[2017-05-12] MEDS: FERROUS SULFATE 60 MG/ML 5ML CUP GTB ×2 (08:57→20:22)
[2017-05-12] MEDS: morphine LIQ (10 MG/5 ML) CUP GTB ×3 (08:58→21:29)
[2017-05-12] MEDS: HEPARIN 5,000 UNIT/0.5 ML VIAL SC ×2 (09:10→20:30)
[2017-05-12] MEDS: THIAMINE 100 MG TAB GTB (09:11)
[2017-05-12] MEDS: LEVETIRACETAM 1000 MG (PMX) 100 ML IVPB ×2 (09:15→20:22)
[2017-05-12] MEDS: FOLIC ACID 1 MG TAB GTB (09:15)
[2017-05-12] MEDS: BUDESONIDE (NEB) 0.5MG/2ML AMP HHN ×2 (09:54→20:18)
[2017-05-12] MEDS: HYDROCODONE/APAP (5/325) TAB GTB (17:38)
[2017-05-13] MEDS: IPRATROPIUM (HFA) 12.9 GM INHALER INH ×6 (01:24→21:32)
[2017-05-13] MEDS: ALBUTEROL HFA 8 GM INHALER INH ×6 (01:24→21:32)
[2017-05-13] MEDS: HYDROCODONE/APAP (5/325) TAB GTB ×3 (02:03→18:33)
[2017-05-13] MEDS: METHYLPREDNISOLONE 40 MG INJ IV ×3 (05:37→21:05)
[2017-05-13] MEDS: DILTIAZEM 30 MG TAB PO ×5 (05:38→23:55)
[2017-05-13 06:18] LABS: ADD MAN DIFF? NO
[2017-05-13 06:35] LABS: ABNORMAL IP MESSAGE 1; BASOPHILS % 0.1 % (0.0-2.0); HEMATOCRIT 29.1 % (37.0-47.0); HEMOGLOBIN 10.4 g/dl (12.0-16.0); LYMPHOCYTES # 0.4 10^3/ul (0.8-2.9); LYMPHOCYTES % 5.5 % (15.0-51.0); MEAN CORPUSCULAR HEMOGLOBIN 32.9 pg (29.0-33.0); MEAN CORPUSCULAR HGB CONC 35.7 g/dl (32.0-37.0); MEAN CORPUSCULAR VOLUME 92.1 fl (82.0-101.0); MEAN PLATELET VOLUME 9.4 fl (7.4-10.4); MONOCYTE # 0.2 10^3/ul (0.3-0.9); MONOCYTES % 2.2 % (0.0-11.0); NEUTROPHIL # 7.1 10^3/ul (1.6-7.5); NEUTROPHILS % 90.8 % (39.0-77.0); PLATELET COUNT 138 10^3/UL (140-415); RED BLOOD COUNT 3.16 10^6/ul (4.20-5.40); RED CELL DISTRIBUTION WIDTH 12.9 % (11.5-14.5)
[2017-05-13 06:35] LABS: WHITE BLOOD COUNT 7.8 10^3/ul (4.8-10.8)
[2017-05-13 06:37] LABS: POSITIVE DIFF @See below
[2017-05-13 07:05] LABS: ANION GAP 11 (8-16); BLOOD UREA NITROGEN 26 mg/dl (7-20); CARBON DIOXIDE 29 mmol/L (21-31); CHLORIDE 101 mmol/L (97-110); GLUCOSE 185 mg/dl (70-220); POTASSIUM 4.3 mmol/L (3.5-5.1); SODIUM 137 mmol/L (135-144)
[2017-05-13] MEDS: FERROUS SULFATE 60 MG/ML 5ML CUP GTB ×2 (08:12→21:05)
[2017-05-13] MEDS: FLUCONAZOLE 100 MG TAB GTB (08:13)
[2017-05-13] MEDS: MULTIVITAMINS THERAPEUTIC TAB PO (08:13)
[2017-05-13] MEDS: ASCORBIC ACID 500 MG TAB GTB (08:13)
[2017-05-13] MEDS: QUETIAPINE 25 MG TAB GTB ×2 (08:13→21:05)
[2017-05-13] MEDS: morphine LIQ (10 MG/5 ML) CUP GTB ×2 (08:13→16:15)
[2017-05-13] MEDS: DULOXETINE 30 MG CAP DR GTB (08:13)
[2017-05-13] MEDS: FOLIC ACID 1 MG TAB GTB (08:14)
[2017-05-13] MEDS: THIAMINE 100 MG TAB GTB (08:14)
[2017-05-13] MEDS: GENTAMICIN 0.1% 15 GM OINT TOP ×2 (08:15→21:06)
[2017-05-13] MEDS: METOPROLOL 25 MG TAB GTB ×2 (08:27→21:38)
[2017-05-13] MEDS: LEVETIRACETAM 1000 MG (PMX) 100 ML IVPB ×2 (08:32→21:04)
[2017-05-13] MEDS: HEPARIN 5,000 UNIT/0.5 ML VIAL SC ×2 (08:57→21:08)
[2017-05-13] MEDS: BUDESONIDE (NEB) 0.5MG/2ML AMP HHN ×2 (09:29→21:35)
[2017-05-13] MEDS: ZOLPIDEM 5 MG TAB GTB (21:09)
[2017-05-14] MEDS: HYDROCODONE/APAP (5/325) TAB GTB ×3 (01:11→17:52)
[2017-05-14] MEDS: ALBUTEROL HFA 8 GM INHALER INH ×6 (01:46→20:45)
[2017-05-14] MEDS: IPRATROPIUM (HFA) 12.9 GM INHALER INH ×6 (01:46→20:45)
[2017-05-14] MEDS: METHYLPREDNISOLONE 40 MG INJ IV ×3 (05:33→21:37)
[2017-05-14] MEDS: DILTIAZEM 30 MG TAB PO ×3 (05:34→17:54)
[2017-05-14] MEDS: morphine LIQ (10 MG/5 ML) CUP GTB ×3 (07:48→21:21)
[2017-05-14] MEDS: DULOXETINE 30 MG CAP DR GTB (08:45)
[2017-05-14] MEDS: FERROUS SULFATE 60 MG/ML 5ML CUP GTB ×2 (08:45→21:21)
[2017-05-14] MEDS: THIAMINE 100 MG TAB GTB (08:45)
[2017-05-14] MEDS: FOLIC ACID 1 MG TAB GTB (08:46)
[2017-05-14] MEDS: QUETIAPINE 25 MG TAB GTB ×2 (08:46→21:22)
[2017-05-14] MEDS: MULTIVITAMINS THERAPEUTIC TAB PO (08:46)
[2017-05-14] MEDS: FLUCONAZOLE 100 MG TAB GTB (08:46)
[2017-05-14] MEDS: ASCORBIC ACID 500 MG TAB GTB (08:46)
[2017-05-14] MEDS: LEVETIRACETAM 1000 MG (PMX) 100 ML IVPB ×2 (08:47→21:22)
[2017-05-14] MEDS: METOPROLOL 25 MG TAB GTB ×2 (08:47→21:22)
[2017-05-14] MEDS: HEPARIN 5,000 UNIT/0.5 ML VIAL SC ×2 (09:05→21:34)
[2017-05-14] MEDS: BUDESONIDE (NEB) 0.5MG/2ML AMP HHN ×2 (09:07→20:43)
[2017-05-14] MEDS: GENTAMICIN 0.1% 15 GM OINT TOP ×2 (10:17→21:23)
[2017-05-14] MEDS: ZOLPIDEM 5 MG TAB GTB (22:42)
[2017-05-15] MEDS: DILTIAZEM 30 MG TAB PO ×4 (00:35→17:31)
[2017-05-15] MEDS: ALBUTEROL HFA 8 GM INHALER INH ×6 (01:16→20:06)
[2017-05-15] MEDS: IPRATROPIUM (HFA) 12.9 GM INHALER INH ×6 (01:16→20:05)
[2017-05-15] MEDS: morphine LIQ (10 MG/5 ML) CUP GTB ×2 (03:37→20:29)
[2017-05-15] MEDS: METHYLPREDNISOLONE 40 MG INJ IV ×3 (06:02→21:28)
[2017-05-15] MEDS: BUDESONIDE (NEB) 0.5MG/2ML AMP HHN ×2 (09:00→20:02)
[2017-05-15] MEDS: FERROUS SULFATE 60 MG/ML 5ML CUP GTB ×2 (09:14→20:29)
[2017-05-15] MEDS: DULOXETINE 30 MG CAP DR GTB (09:15)
[2017-05-15] MEDS: MULTIVITAMINS THERAPEUTIC TAB PO (09:15)
[2017-05-15] MEDS: QUETIAPINE 25 MG TAB GTB ×2 (09:15→20:29)
[2017-05-15] MEDS: FOLIC ACID 1 MG TAB GTB (09:15)
[2017-05-15] MEDS: ASCORBIC ACID 500 MG TAB GTB (09:15)
[2017-05-15] MEDS: FLUCONAZOLE 100 MG TAB GTB (09:16)
[2017-05-15] MEDS: METOPROLOL 25 MG TAB GTB ×2 (09:16→20:29)
[2017-05-15] MEDS: HEPARIN 5,000 UNIT/0.5 ML VIAL SC ×2 (09:19→20:35)
[2017-05-15] MEDS: THIAMINE 100 MG TAB GTB (09:23)
[2017-05-15] MEDS: GENTAMICIN 0.1% 15 GM OINT TOP ×2 (09:37→20:37)
[2017-05-15] MEDS: HYDROCODONE/APAP (5/325) TAB GTB ×4 (09:37→23:18)
[2017-05-15] MEDS: LEVETIRACETAM 1000 MG (PMX) 100 ML IVPB ×2 (09:39→20:37)
[2017-05-15] MEDS: LORAZEPAM 2 MG INJ IV (20:16)
[2017-05-15] MEDS: ZOLPIDEM 5 MG TAB GTB (21:56)
[2017-05-16] MEDS: ALBUTEROL HFA 8 GM INHALER INH ×6 (00:30→20:22)
[2017-05-16] MEDS: IPRATROPIUM (HFA) 12.9 GM INHALER INH ×6 (00:30→20:21)
[2017-05-16] MEDS: DILTIAZEM 30 MG TAB PO ×2 (00:37→05:58)
[2017-05-16] MEDS: METHYLPREDNISOLONE 40 MG INJ IV ×3 (05:58→22:04)
[2017-05-16 07:38] LABS: ADD MAN DIFF? NO
[2017-05-16 07:47] LABS: WHITE BLOOD COUNT 11.5 10^3/ul (4.8-10.8)
[2017-05-16 07:47] LABS: BASOPHILS % 0.2 % (0.0-2.0); EOSINOPHILS % 0.1 % (0.0-7.0); HEMATOCRIT 31.2 % (37.0-47.0); LYMPHOCYTES # 0.8 10^3/ul (0.8-2.9); LYMPHOCYTES % 7.2 % (15.0-51.0); MEAN CORPUSCULAR HEMOGLOBIN 32.4 pg (29.0-33.0); MEAN CORPUSCULAR HGB CONC 35.3 g/dl (32.0-37.0); MEAN CORPUSCULAR VOLUME 91.8 fl (82.0-101.0); MEAN PLATELET VOLUME 8.8 fl (7.4-10.4); MONOCYTE # 0.5 10^3/ul (0.3-0.9); MONOCYTES % 4.1 % (0.0-11.0); NEUTROPHILS % 87.1 % (39.0-77.0); NUCLEATED RED BLOOD CELLS% 0.2 /100WBC (0.0-0.0); PLATELET COUNT 179 10^3/UL (140-415); RED CELL DISTRIBUTION WIDTH 13.2 % (11.5-14.5)
[2017-05-16 08:01] LABS: ANION GAP 9 (8-16); BLOOD UREA NITROGEN 24 mg/dl (7-20); CALCIUM 9.6 mg/dl (8.4-10.2); CARBON DIOXIDE 37 mmol/L (21-31); CHLORIDE 96 mmol/L (97-110); CREATININE 0.43 mg/dl (0.44-1.00); GLUCOSE 102 mg/dl (70-220); PHOSPHORUS 3.6 mg/dl (2.5-4.9); POTASSIUM 4.3 mmol/L (3.5-5.1); SODIUM 138 mmol/L (135-144)
[2017-05-16] MEDS: DULOXETINE 30 MG CAP DR GTB (08:50)
[2017-05-16] MEDS: FLUCONAZOLE 100 MG TAB GTB (08:50)
[2017-05-16] MEDS: FOLIC ACID 1 MG TAB GTB (08:51)
[2017-05-16] MEDS: QUETIAPINE 25 MG TAB GTB ×2 (08:51→21:00)
[2017-05-16] MEDS: THIAMINE 100 MG TAB GTB (08:51)
[2017-05-16] MEDS: MULTIVITAMINS THERAPEUTIC TAB PO (08:51)
[2017-05-16] MEDS: METOPROLOL 25 MG TAB GTB ×2 (08:51→21:00)
[2017-05-16] MEDS: ASCORBIC ACID 500 MG TAB GTB (08:51)
[2017-05-16] MEDS: FERROUS SULFATE 60 MG/ML 5ML CUP GTB ×2 (08:51→21:00)
[2017-05-16] MEDS: GENTAMICIN 0.1% 15 GM OINT TOP ×2 (08:52→21:00)
[2017-05-16] MEDS: HEPARIN 5,000 UNIT/0.5 ML VIAL SC ×2 (09:01→21:00)
[2017-05-16] MEDS: BUDESONIDE (NEB) 0.5MG/2ML AMP HHN ×2 (09:10→20:08)
[2017-05-16] MEDS: morphine LIQ (10 MG/5 ML) CUP GTB (10:42)
[2017-05-16] MEDS: LEVETIRACETAM 1000 MG (PMX) 100 ML IVPB ×2 (10:42→21:00)
[2017-05-16] MEDS: LORAZEPAM 2 MG INJ IV (12:55)
[2017-05-16] MEDS: DILTIAZEM 60 MG TAB PO ×2 (13:00→17:29)
[2017-05-17] MEDS: IPRATROPIUM (HFA) 12.9 GM INHALER INH ×3 (00:05→09:22)
[2017-05-17] MEDS: ALBUTEROL HFA 8 GM INHALER INH ×3 (00:06→09:23)
[2017-05-17] MEDS: ZOLPIDEM 5 MG TAB GTB ×2 (00:45→21:32)
[2017-05-17] MEDS: morphine LIQ (10 MG/5 ML) CUP GTB ×2 (00:45→15:57)
[2017-05-17] MEDS: DILTIAZEM 60 MG TAB PO ×4 (00:56→18:51)
[2017-05-17] MEDS: HYDROCODONE/APAP (5/325) TAB GTB ×4 (04:10→21:32)
[2017-05-17] MEDS: LORAZEPAM 2 MG INJ IV (04:10)
[2017-05-17] MEDS: METHYLPREDNISOLONE 40 MG INJ IV ×3 (05:24→21:21)
[2017-05-17] MEDS: HEPARIN 5,000 UNIT/0.5 ML VIAL SC ×3 (09:00→21:19)
[2017-05-17] MEDS: BUDESONIDE (NEB) 0.5MG/2ML AMP HHN ×2 (09:21→19:19)
[2017-05-17] MEDS: FERROUS SULFATE 60 MG/ML 5ML CUP GTB ×2 (09:48→21:21)
[2017-05-17] MEDS: QUETIAPINE 25 MG TAB GTB ×2 (09:48→21:12)
[2017-05-17] MEDS: ASCORBIC ACID 500 MG TAB GTB (09:48)
[2017-05-17] MEDS: DULOXETINE 30 MG CAP DR GTB (09:48)
[2017-05-17] MEDS: MULTIVITAMINS THERAPEUTIC TAB PO (09:49)
[2017-05-17] MEDS: FOLIC ACID 1 MG TAB GTB (09:49)
[2017-05-17] MEDS: FLUCONAZOLE 100 MG TAB GTB (09:49)
[2017-05-17] MEDS: THIAMINE 100 MG TAB GTB (09:50)
[2017-05-17] MEDS: METOPROLOL 25 MG TAB GTB ×2 (09:54→21:13)
[2017-05-17] MEDS: LEVETIRACETAM 1000 MG (PMX) 100 ML IVPB ×2 (16:00→21:00)
[2017-05-17] MEDS: GENTAMICIN 0.1% 15 GM OINT TOP ×2 (16:02→21:14)
[2017-05-17] MEDS: ALBUTEROL/IPRATROPIUM (NEB) 3 ML AMP HHN (19:19)
[2017-05-18] MEDS: morphine LIQ (10 MG/5 ML) CUP GTB (00:49)
[2017-05-18] MEDS: DILTIAZEM 60 MG TAB PO ×4 (00:50→17:55)
[2017-05-18] MEDS: METHYLPREDNISOLONE 40 MG INJ IV ×3 (05:34→20:39)
[2017-05-18 06:24] LABS: ADD MAN DIFF? NO
[2017-05-18] MEDS: HYDROCODONE/APAP (5/325) TAB GTB ×3 (06:40→16:39)
[2017-05-18 06:56] LABS: WHITE BLOOD COUNT 10.8 10^3/ul (4.8-10.8)
[2017-05-18 06:56] LABS: BASOPHILS % 0.1 % (0.0-2.0); EOSINOPHILS % 0.3 % (0.0-7.0); HEMATOCRIT 32.8 % (37.0-47.0); HEMOGLOBIN 11.5 g/dl (12.0-16.0); LYMPHOCYTES % 9.3 % (15.0-51.0); MEAN CORPUSCULAR HEMOGLOBIN 32.5 pg (29.0-33.0); MEAN CORPUSCULAR HGB CONC 35.1 g/dl (32.0-37.0); MEAN CORPUSCULAR VOLUME 92.7 fl (82.0-101.0); MEAN PLATELET VOLUME 9.1 fl (7.4-10.4); MONOCYTE # 0.6 10^3/ul (0.3-0.9); MONOCYTES % 5.6 % (0.0-11.0); NEUTROPHIL # 9.1 10^3/ul (1.6-7.5); NEUTROPHILS % 84.1 % (39.0-77.0); PLATELET COUNT 210 10^3/UL (140-415); RED BLOOD COUNT 3.54 10^6/ul (4.20-5.40); RED CELL DISTRIBUTION WIDTH 13.2 % (11.5-14.5)
[2017-05-18] MEDS: ALBUTEROL/IPRATROPIUM (NEB) 3 ML AMP HHN ×3 (08:54→19:16)
[2017-05-18] MEDS: BUDESONIDE (NEB) 0.5MG/2ML AMP HHN ×2 (08:55→19:17)
[2017-05-18] MEDS: LEVETIRACETAM 1000 MG (PMX) 100 ML IVPB ×2 (09:00→09:15)
[2017-05-18] MEDS: GENTAMICIN 0.1% 15 GM OINT TOP ×2 (09:06→20:39)
[2017-05-18] MEDS: FERROUS SULFATE 60 MG/ML 5ML CUP GTB ×2 (09:07→20:36)
[2017-05-18] MEDS: DULOXETINE 30 MG CAP DR GTB (09:07)
[2017-05-18] MEDS: THIAMINE 100 MG TAB GTB (09:08)
[2017-05-18] MEDS: LEVETIRACETAM 750 MG TAB PO ×2 (09:08→22:19)
[2017-05-18] MEDS: MULTIVITAMINS THERAPEUTIC TAB PO (09:09)
[2017-05-18] MEDS: ASCORBIC ACID 500 MG TAB GTB (09:09)
[2017-05-18] MEDS: FLUCONAZOLE 100 MG TAB GTB (09:10)
[2017-05-18] MEDS: FOLIC ACID 1 MG TAB GTB (09:10)
[2017-05-18] MEDS: predniSONE 20 MG TAB PO ×3 (09:11→20:37)
[2017-05-18] MEDS: QUETIAPINE 25 MG TAB GTB ×2 (09:13→20:37)
[2017-05-18] MEDS: METOPROLOL 25 MG TAB GTB ×2 (09:13→20:38)
[2017-05-18] MEDS: HEPARIN 5,000 UNIT/0.5 ML VIAL SC ×2 (09:25→20:41)
[2017-05-18] MEDS: LORAZEPAM 1 MG TAB PO (20:44)
[2017-05-19] MEDS: DILTIAZEM 60 MG TAB PO ×4 (00:37→17:43)
[2017-05-19] MEDS: predniSONE 20 MG TAB PO ×3 (04:41→20:55)
[2017-05-19] MEDS: HYDROCODONE/APAP (5/325) TAB GTB ×3 (04:41→21:00)
[2017-05-19] MEDS: METHYLPREDNISOLONE 40 MG INJ IV ×3 (04:42→21:07)
[2017-05-19] MEDS: LORAZEPAM 1 MG TAB PO ×3 (04:42→23:40)
[2017-05-19 05:37] LABS: AADO2 Arterial 98.6 mmHg (7.0-24.0); Allen Test ACCEPTAB; Arterial Base Excess 8.1 mmol/L (-3.0-3); Arterial COHb 0.3 % (0.0-3.0); Arterial Fraction of Oxyhgb 97.5 % (93.0-99.0); Arterial HCO3 32.7 mmol/L (22.0-26.0); Arterial MetHb 0.2 % (0.0-1.5); Arterial Total Hemglobin 12.3 g/dl (12.0-18.0); Arterial pCO2 45.8 mmhg (35-45); MODE VENT - AC; Site Right Radial
[2017-05-19 06:47] LABS: ADD MAN DIFF? NO
[2017-05-19] MEDS: morphine LIQ (10 MG/5 ML) CUP GTB (06:48)
[2017-05-19 06:49] LABS: ABNORMAL IP MESSAGE 1; BASOPHILS % 0.1 % (0.0-2.0); HEMATOCRIT 31.9 % (37.0-47.0); HEMOGLOBIN 11.4 g/dl (12.0-16.0); LYMPHOCYTES # 0.2 10^3/ul (0.8-2.9); LYMPHOCYTES % 1.9 % (15.0-51.0); MEAN CORPUSCULAR HEMOGLOBIN 32.5 pg (29.0-33.0); MEAN CORPUSCULAR HGB CONC 35.7 g/dl (32.0-37.0); MEAN CORPUSCULAR VOLUME 90.9 fl (82.0-101.0); MEAN PLATELET VOLUME 8.7 fl (7.4-10.4); MONOCYTE # 0.3 10^3/ul (0.3-0.9); MONOCYTES % 2.9 % (0.0-11.0); NEUTROPHIL # 8.8 10^3/ul (1.6-7.5); NEUTROPHILS % 94.6 % (39.0-77.0); PLATELET COUNT 207 10^3/UL (140-415); RED BLOOD COUNT 3.51 10^6/ul (4.20-5.40); RED CELL DISTRIBUTION WIDTH 12.9 % (11.5-14.5)
[2017-05-19 06:49] LABS: WHITE BLOOD COUNT 9.3 10^3/ul (4.8-10.8)
[2017-05-19 06:59] LABS: POSITIVE DIFF @See below
[2017-05-19 07:25] LABS: ANION GAP 12 (8-16); BLOOD UREA NITROGEN 28 mg/dl (7-20); CALCIUM 9.6 mg/dl (8.4-10.2); CARBON DIOXIDE 32 mmol/L (21-31); CHLORIDE 95 mmol/L (97-110); CREATININE 0.47 mg/dl (0.44-1.00); GLUCOSE 167 mg/dl (70-220); PHOSPHORUS 3.3 mg/dl (2.5-4.9); POTASSIUM 4.3 mmol/L (3.5-5.1); SODIUM 135 mmol/L (135-144)
[2017-05-19] MEDS: IPRATROPIUM (HFA) 12.9 GM INHALER INH ×3 (08:03→19:49)
[2017-05-19] MEDS: BUDESONIDE (NEB) 0.5MG/2ML AMP HHN ×2 (08:03→19:50)
[2017-05-19] MEDS: ALBUTEROL HFA 8 GM INHALER INH ×3 (08:03→19:48)
[2017-05-19] MEDS: FERROUS SULFATE 60 MG/ML 5ML CUP GTB ×2 (08:55→20:55)
[2017-05-19] MEDS: LEVETIRACETAM 750 MG TAB PO ×2 (08:56→21:06)
[2017-05-19] MEDS: FLUCONAZOLE 100 MG TAB GTB (08:57)
[2017-05-19] MEDS: FOLIC ACID 1 MG TAB GTB (08:57)
[2017-05-19] MEDS: MULTIVITAMINS THERAPEUTIC TAB PO (08:57)
[2017-05-19] MEDS: QUETIAPINE 25 MG TAB GTB ×2 (08:58→20:53)
[2017-05-19] MEDS: DULOXETINE 30 MG CAP DR GTB (08:58)
[2017-05-19] MEDS: ASCORBIC ACID 500 MG TAB GTB (08:59)
[2017-05-19] MEDS: METOPROLOL 25 MG TAB GTB ×2 (08:59→20:54)
[2017-05-19] MEDS: GENTAMICIN 0.1% 15 GM OINT TOP ×2 (09:00→21:04)
[2017-05-19] MEDS: THIAMINE 100 MG TAB GTB (09:00)
[2017-05-19] MEDS: HEPARIN 5,000 UNIT/0.5 ML VIAL SC ×2 (09:02→21:02)
[2017-05-19 09:52] LABS: ADD UMIC YES; UR ASCORBIC ACID 40 mg/dL (NEGATIVE); UR BACTERIA FEW /HPF (NONE SEEN); UR BILIRUBIN (Dip) NEGATIVE (NEGATIVE); UR BLOOD (Dip) NEGATIVE (NEGATIVE); UR CLARITY TURBID (CLEAR); UR COLOR AMBER (YELLOW); UR GLUCOSE (Dip) NEGATIVE (NEGATIVE); UR KETONES (Dip) NEGATIVE (NEGATIVE); UR LEUKOCYTE ESTERASE (Dip) 3+ Leu/ul (NEGATIVE); UR MUCUS MODERATE /HPF (NONE SEEN); UR NITRITE (Dip) NEGATIVE (NEGATIVE); UR RBC 117 /HPF (0-5); UR SPECIFIC GRAVITY (Dip) 1.018 (1.003-1.030); UR SQUAMOUS EPITHELIAL CELL FEW /HPF (FEW); UR TOTAL PROTEIN (Dip) 3+ mg/dl (NEGATIVE); UR URIC ACID CRYSTAL MANY /HPF (NONE SEEN); UR UROBILINOGEN (Dip) NEGATIVE (NEGATIVE); UR WBC 86 /HPF (0-5)
[2017-05-19] MEDS: FOSFOMYCIN 3 GM PACKET GTB (20:56)
[2017-05-19] MEDS: ZOLPIDEM 5 MG TAB GTB (21:00)
[2017-05-20] MEDS: DILTIAZEM 60 MG TAB PO ×4 (00:04→17:53)
[2017-05-20] MEDS: METHYLPREDNISOLONE 40 MG INJ IV ×3 (05:01→22:00)
[2017-05-20] MEDS: HYDROCODONE/APAP (5/325) TAB GTB ×3 (05:09→17:53)
[2017-05-20] MEDS: LORAZEPAM 1 MG TAB PO ×3 (05:09→20:21)
[2017-05-20] MEDS: IPRATROPIUM (HFA) 12.9 GM INHALER INH ×3 (08:11→21:27)
[2017-05-20] MEDS: ALBUTEROL HFA 8 GM INHALER INH ×3 (08:11→21:27)
[2017-05-20] MEDS: BUDESONIDE (NEB) 0.5MG/2ML AMP HHN ×2 (09:20→21:34)
[2017-05-20] MEDS: LEVETIRACETAM 750 MG TAB PO ×2 (09:27→20:22)
[2017-05-20] MEDS: QUETIAPINE 25 MG TAB GTB ×2 (09:27→20:25)
[2017-05-20] MEDS: DULOXETINE 30 MG CAP DR GTB (09:27)
[2017-05-20] MEDS: THIAMINE 100 MG TAB GTB (09:28)
[2017-05-20] MEDS: FOLIC ACID 1 MG TAB GTB (09:28)
[2017-05-20] MEDS: predniSONE 20 MG TAB PO ×3 (09:28→20:21)
[2017-05-20] MEDS: ASCORBIC ACID 500 MG TAB GTB (09:28)
[2017-05-20] MEDS: MULTIVITAMINS THERAPEUTIC TAB PO (09:28)
[2017-05-20] MEDS: FLUCONAZOLE 100 MG TAB GTB (09:28)
[2017-05-20] MEDS: GENTAMICIN 0.1% 15 GM OINT TOP ×2 (09:29→20:24)
[2017-05-20] MEDS: METOPROLOL 25 MG TAB GTB ×2 (09:29→20:22)
[2017-05-20] MEDS: morphine LIQ (10 MG/5 ML) CUP GTB ×2 (09:29→20:21)
[2017-05-20] MEDS: FERROUS SULFATE 60 MG/ML 5ML CUP GTB ×2 (09:29→20:21)
[2017-05-20] MEDS: HEPARIN 5,000 UNIT/0.5 ML VIAL SC ×2 (09:37→20:50)
[2017-05-20] MEDS: CEFEPIME 1GM/50 ML (PMX) 50 ML IVPB (20:25)
== END 2017-05-21 00:35 | disposition short-term general hospital (02) | DRG 870 ==
LOC: ICU 19:06 → TEL 05-09 12:37
PROC: 5A1955Z Respiratory Ventilation, Greater than 96 Consecutive Hours (ICD-10-PCS; principal; 2017-05-07)
PROC: 0W9B30Z Drainage of Left Pleural Cavity with Drainage Device, Percutaneous Approach (ICD-10-PCS; 2017-05-08)
PROC: 4A133R1 Monitoring of Arterial Saturation, Peripheral, Percutaneous Approach (ICD-10-PCS; 2017-05-08)
DX: A41.9 Sepsis, unspecified organism (principal); J18.9 Pneumonia, unspecified organism; Z99.11 Dependence on respirator [ventilator] status; J96.11 Chronic respiratory failure with hypoxia; Z93.0 Tracheostomy status; J44.9 Chronic obstructive pulmonary disease, unspecified; B37.81 Candidal esophagitis; N39.0 Urinary tract infection, site not specified; J93.83 Other pneumothorax; F33.9 Major depressive disorder, recurrent, unspecified; G40.909 Epilepsy, unspecified, not intractable, without status epilepticus; F10.10 Alcohol abuse, uncomplicated; Z93.1 Gastrostomy status; Z95.0 Presence of cardiac pacemaker; G89.4 Chronic pain syndrome; I10 Essential (primary) hypertension; R13.10 Dysphagia, unspecified; F41.9 Anxiety disorder, unspecified; D64.9 Anemia, unspecified; Z88.0 Allergy status to penicillin; Z87.891 Personal history of nicotine dependence; W06.XXXA Fall from bed, initial encounter; Y92.230 Patient room in hospital as the place of occurrence of the external cause
CPT/HCPCS: 36600; 70450; 71045; 73030-RT; 73060-RT; 73080-RT; 73090-RT; 73130-RT; 80048; 80053; 80076; 81001; 82803; 82962; 83605; 83735; 84100; 85025; 87081; 87086; 92522; 92526; 92610; 94002; 94003; 94640; 94664

== ENCOUNTER 2018-12-09 23:10 | Inpatient (IN) | payer MEDICARE, MEDICAID ==
[2018-12-09 23:42] LABS: ADD MAN DIFF? NO
[2018-12-09 23:45] LABS: BASOPHIL # 0.1 10^3/ul (0.0-0.1); BASOPHILS % 0.5 % (0.0-2.0); EOSINOPHILS # 0.7 10^3/ul (0.0-0.5); EOSINOPHILS % 4.9 % (0.0-7.0); HEMATOCRIT 36.7 % (37.0-47.0); HEMOGLOBIN 10.9 g/dl (12.0-16.0); LYMPHOCYTES # 1.1 10^3/ul (0.8-2.9); LYMPHOCYTES % 7.5 % (15.0-51.0); MEAN CORPUSCULAR HEMOGLOBIN 32.3 pg (29.0-33.0); MEAN CORPUSCULAR HGB CONC 29.7 g/dl (32.0-37.0); MEAN CORPUSCULAR VOLUME 108.9 fl (82.0-101.0); MEAN PLATELET VOLUME 10.6 fl (7.4-10.4); MONOCYTE # 0.3 10^3/ul (0.3-0.9); MONOCYTES % 2.1 % (0.0-11.0); NEUTROPHIL # 12.2 10^3/ul (1.6-7.5); NEUTROPHILS % 80.8 % (39.0-77.0); NUCLEATED RED BLOOD CELLS% 0.1 /100WBC (0.0-0.0); PLATELET COUNT 333 10^3/UL (140-415); RED BLOOD COUNT 3.37 10^6/ul (4.20-5.40)
[2018-12-10 00:06] LABS: ALANINE AMINOTRANSFERASE 51 IU/L (13-69); ALBUMIN 4.1 g/dl (3.3-4.9); ALBUMIN/GLOBULIN RATIO 1.05; ALKALINE PHOSPHATASE 117 IU/L (42-121); ANION GAP 24 (5-13); ASPARTATE AMINO TRANSFERASE 109 IU/L (15-46); BLOOD UREA NITROGEN 45 mg/dl (7-20); CALCIUM 9.8 mg/dl (8.4-10.2); CARBON DIOXIDE 22 mmol/L (21-31); CHLORIDE 99 mmol/L (97-110); CREATININE 0.87 mg/dl (0.44-1.00); Estimated GFR > 60 mL/min (>60); GLUCOSE 278 mg/dl (70-220); SODIUM 145 mmol/L (135-144)
[2018-12-10] MEDS: CEFEPIME 2GM/50 ML (PMX) 50 ML IVPB (00:11)
[2018-12-10 00:14] LABS: POTASSIUM 6.1 mmol/L (3.5-5.1)
[2018-12-10 00:29] LABS: INR 1.04; PROTIME 13.7 Sec (11.9-14.9); PT RATIO 1.1
[2018-12-10 00:35] LABS: AADO2 Arterial 148.4 mmHg (7.0-24.0); Allen Test ACCEPTAB; Arterial Base Excess 1.9 mmol/L (-3.0-3); Arterial Blood Gas Oxygen Sat 89.4 mmHG (95.0-98.0); Arterial COHb 0.3 % (0.0-3.0); Arterial Fraction of Oxyhgb 88.9 % (93.0-99.0); Arterial HCO3 29.5 mmol/L (22.0-26.0); Arterial MetHb 0.3 % (0.0-1.5); Arterial pCO2 61.7 mmhg (35-45); MODE VENT - AC; Site Right Radial
[2018-12-10 00:40] LABS: PARTIAL THROMBOPLASTIN TIME 34.3 Sec (23.0-35.0)
[2018-12-10] MEDS: ALBUTEROL 0.5% (NEB) 2.5 MG/0.5 ML AMP INH (00:46)
[2018-12-10] MEDS: LORAZEPAM 2 MG INJ IV ×5 (00:48→15:25)
[2018-12-10 00:55] LABS: ADD UMIC YES; UR ASCORBIC ACID 40 mg/dL (NEGATIVE); UR BACTERIA MANY /HPF (NONE SEEN); UR BILIRUBIN (Dip) NEGATIVE (NEGATIVE); UR BLOOD (Dip) 2+ mg/dL (NEGATIVE); UR CLARITY CLOUDY (CLEAR); UR COLOR AMBER (YELLOW); UR GLUCOSE (Dip) 2+ mg/dL (NEGATIVE); UR KETONES (Dip) NEGATIVE (NEGATIVE); UR LEUKOCYTE ESTERASE (Dip) NEGATIVE Leu/ul (NEGATIVE); UR MUCUS FEW /HPF (NONE SEEN); UR NITRITE (Dip) NEGATIVE (NEGATIVE); UR RBC 55 /HPF (0-5); UR SPECIFIC GRAVITY (Dip) 1.014 (1.003-1.030); UR TOTAL PROTEIN (Dip) 3+ mg/dl (NEGATIVE); UR TRANSITIONAL EPI CELL FEW /HPF (NONE SEEN); UR UROBILINOGEN (Dip) NEGATIVE (NEGATIVE); UR WBC 33 /HPF (0-5)
[2018-12-10] MEDS: INSULIN REGULAR, HUMAN 100 UNIT/1 ML 3ML VIAL IVP (01:05)
[2018-12-10] MEDS: VANCOMYCIN 1 GM (PMX) 250 ML IVPB (01:30)
[2018-12-10 01:50] LABS: ANION GAP 9 (5-13); BLOOD UREA NITROGEN 50 mg/dl (7-20); CALCIUM 8.6 mg/dl (8.4-10.2); CARBON DIOXIDE 28 mmol/L (21-31); CHLORIDE 107 mmol/L (97-110); CREATININE 0.69 mg/dl (0.44-1.00); Estimated GFR > 60 mL/min (>60); GLUCOSE 92 mg/dl (70-220); POTASSIUM 5.2 mmol/L (3.5-5.1); SODIUM 144 mmol/L (135-144)
[2018-12-10 01:54] LABS: LACTIC ACID 6.3 mmol/L (0.5-2.0)
[2018-12-10] MEDS: DEXTROSE 50% 50 ML SYRINGE IV ×4 (02:07→22:29)
[2018-12-10] MEDS ORDERED: LEVETIRACETAM 1000 MG (PMX) 100 ML IVPB (02:30)
[2018-12-10] MEDS: LEVETIRACETAM 500 MG (PMX) 100 ML IVPB ×2 (02:33→02:45)
[2018-12-10] MEDS ORDERED: LORAZEPAM 1 MG TAB GTB (03:00)
[2018-12-10] MEDS ORDERED: ONDANSETRON 4 MG INJ IV (03:00)
[2018-12-10] MEDS: SOD CHLORIDE 0.9% 1,000 ML IV ×3 (04:56→22:14)
[2018-12-10] MEDS: IPRATROPIUM (HFA) 12.9 GM INHALER INH ×5 (05:07→21:05)
[2018-12-10] MEDS: ALBUTEROL HFA 8 GM INHALER INH ×5 (05:07→21:05)
[2018-12-10] MEDS: PANTOPRAZOLE 40 MG INJ IV (06:39)
[2018-12-10] MEDS: METOPROLOL 25 MG TAB PO (06:39)
[2018-12-10] MEDS ORDERED: DEXTROSE 50% 50 ML SYRINGE (07:00)
[2018-12-10] MEDS: BUDESONIDE (NEB) 0.5MG/2ML AMP INH ×2 (08:05→21:05)
[2018-12-10] MEDS ORDERED: VANCOMYCIN IV PER PHARMACY XX (09:00)
[2018-12-10] MEDS: LEVETIRACETAM (100 MG/ML) 5ML CUP GTB ×2 (09:04→22:13)
[2018-12-10] MEDS: AZTREONAM 1 GM/NS (PMX) 50 ML IVPB ×2 (09:04→22:15)
[2018-12-10] MEDS: FERROUS SULFATE 60 MG/ML 5ML CUP GTB ×2 (09:04→22:13)
[2018-12-10] MEDS: FOLIC ACID 1 MG TAB GTB (09:05)
[2018-12-10] MEDS: FUROSEMIDE 20 MG TAB GTB (09:05)
[2018-12-10] MEDS: QUETIAPINE 25 MG TAB PO ×2 (09:05→22:15)
[2018-12-10] MEDS: THIAMINE 100 MG TAB GTB (09:05)
[2018-12-10] MEDS: HEPARIN 5,000 UNIT/1 ML VIAL SC ×2 (09:08→21:00)
[2018-12-10] MEDS: ACETAMINOPHEN 650MG/20.3ML CUP PO (09:17)
[2018-12-10 10:53] LABS: Arterial Base Excess 0.9 mmol/L (-3.0-3); Arterial Blood Gas Oxygen Sat 98.2 mmHG (95.0-98.0); Arterial COHb 0.2 % (0.0-3.0); Arterial Fraction of Oxyhgb 97.7 % (93.0-99.0); Arterial HCO3 25.2 mmol/L (22.0-26.0); Arterial MetHb 0.3 % (0.0-1.5); MODE VENT - AC; Site Right Brachial
[2018-12-10] MEDS: VANCOMYCIN 750 MG (PMX) 250 ML IVPB (12:58)
[2018-12-10] MEDS ORDERED: PROPOFOL 100 ML (16:19)
[2018-12-10 16:20] LABS: AADO2 Arterial 107.6 mmHg (7.0-24.0); Allen Test ACCEPTAB; Arterial Base Excess -8.9 mmol/L (-3.0-3); Arterial Blood Gas Oxygen Sat 91.1 mmHG (95.0-98.0); Arterial COHb 0.3 % (0.0-3.0); Arterial Fraction of Oxyhgb 90.5 % (93.0-99.0); Arterial HCO3 16.1 mmol/L (22.0-26.0); Arterial MetHb 0.4 % (0.0-1.5); Arterial pCO2 31.6 mmhg (35-45); MODE VENT - AC; Site Right Brachial
[2018-12-10] MEDS: PROPOFOL 100 ML IV (16:22)
[2018-12-10] MEDS ORDERED: NORepinephrine 8MG/250 ML (PMX 250 ML (19:01)
[2018-12-10] MEDS: VASOPRESSIN 60 UNIT in DEXTROSE 5% 57 ML IV ×2 (19:23→21:00)
[2018-12-10] MEDS: PHENYLephrine 80 MG in DEXTROSE 5% 242 ML IV (19:25)
[2018-12-10] MEDS: LIDOCAINE 1% (MDV) 20 ML INJ INJ (19:30)
[2018-12-10 20:31] LABS: ALBUMIN 2.2 g/dl (3.3-4.9); ALBUMIN/GLOBULIN RATIO 0.78; ALKALINE PHOSPHATASE 66 IU/L (42-121); ANION GAP 14 (5-13); BILIRUBIN,INDIRECT 0.2 mg/dl (0-1.1); BILIRUBIN,TOTAL 0.2 mg/dl (0.2-1.3); BLOOD UREA NITROGEN 42 mg/dl (7-20); CALCIUM 6.8 mg/dl (8.4-10.2); CARBON DIOXIDE 16 mmol/L (21-31); CHLORIDE 115 mmol/L (97-110); CREATININE 1.16 mg/dl (0.44-1.00); Estimated GFR 48 mL/min (>60); SODIUM 145 mmol/L (135-144)
[2018-12-10 20:32] LABS: MAGNESIUM 2.4 mg/dl (1.7-2.5)
[2018-12-10 20:35] LABS: POTASSIUM 6.6 mmol/L (3.5-5.1)
[2018-12-10 20:36] LABS: GLUCOSE 40 mg/dl (70-220)
[2018-12-10 20:42] LABS: ABNORMAL IP MESSAGE 1; HEMATOCRIT 21.7 % (37.0-47.0); MEAN CORPUSCULAR HEMOGLOBIN 32.6 pg (29.0-33.0); MEAN CORPUSCULAR HGB CONC 28.6 g/dl (32.0-37.0); MEAN CORPUSCULAR VOLUME 114.2 fl (82.0-101.0); MEAN PLATELET VOLUME 10.5 fl (7.4-10.4); NUCLEATED RED BLOOD CELLS% 0.4 /100WBC (0.0-0.0); PLATELET COUNT 216 10^3/UL (140-415); RED CELL DISTRIBUTION WIDTH 12.3 % (11.5-14.5)
[2018-12-10 20:42] LABS: WHITE BLOOD COUNT 18.7 10^3/ul (4.8-10.8)
[2018-12-10 20:43] LABS: ALANINE AMINOTRANSFERASE 1533 IU/L (13-69)
[2018-12-10 21:00] LABS: ASPARTATE AMINO TRANSFERASE 1822 IU/L (15-46)
[2018-12-10] MEDS ORDERED: CALCIUM GLUCONATE 10% 1 GM in DEXTROSE 5% 100 ML IVPB (21:00)
[2018-12-10] MEDS ORDERED: DOPamine 1,600 MG in DEXTROSE 5% 210 ML IV (21:00)
[2018-12-10 21:01] LABS: ADD MAN DIFF? YES; HEMOGLOBIN 6.2 g/dl (12.0-16.0); POSITIVE DIFF @See below
[2018-12-10 21:02] LABS: PATH REVIEW? YES
[2018-12-10 21:57] LABS: ANISOCYTOSIS 1+ (0-0); BAND NEUTROPHILS #M 3.1 10^3/ul (0.0-0.6); BAND NEUTROPHILS % (M) 17 % (0-4); EOSINOPHILS % (M) 1 % (0-7); LYMPHOCYTES #M 2.2 10^3/ul (0.8-2.9); LYMPHOCYTES % (M) 12 % (15-51); MICROCYTOSIS 1+ (0-0); MONOCYTE #M 0.5 10^3/ul (0.3-0.9); MONOCYTES % (M) 3 % (0-11); MYELOCYTES #M 0.3 10^3/ul (0.0-0.0); MYELOCYTES % (M) 2 % (0-0); PLATELET ESTIMATE NORMAL; POLYCHROMASIA 1+ (0-0); PROMYELOCYTES #M 0.3 10^3/ul (0-0); PROMYELOCYTES % (M) 2 % (0-0); SEG NEUT #M 12.5 10^3/ul (1.6-7.5); SEGMENTED NEUTROPHILS (M) % 64 % (39-77); SMUDGE%M 1 % (0-0)
[2018-12-10] MEDS: NA POLYST SULFON 15 GM/60 ML BTL GTB (22:13)
[2018-12-10] MEDS: CA GLUCONATE (GM) 10% 10ML INJ IV (22:17)
[2018-12-10] MEDS: SOD CHLORIDE 0.9% 500 ML IV (22:20)
[2018-12-10] MEDS: NORepinephrine 8MG/250 ML (PMX 250 ML IV (22:47)
[2018-12-11 00:24] LABS: IMMEDIATE SPIN CROSSMATCH 1 2
[2018-12-11 00:40] LABS: Allen Test ACCEPTAB; Arterial Base Excess -14.9 mmol/L (-3.0-3); Arterial Blood Gas Oxygen Sat 99.1 mmHG (95.0-98.0); Arterial COHb 0.3 % (0.0-3.0); Arterial Fraction of Oxyhgb 97.8 % (93.0-99.0); Arterial pCO2 39.9 mmhg (35-45); Blood Gas Low PEEP Setting 0 cmH2O; MODE VENT - AC; Site Right Radial
[2018-12-11] MEDS: IPRATROPIUM (HFA) 12.9 GM INHALER INH ×4 (01:17→12:23)
[2018-12-11] MEDS: ALBUTEROL HFA 8 GM INHALER INH ×4 (01:17→12:23)
[2018-12-11] MEDS ORDERED: NA BICARBONATE 8.4% 50 ML SYG (01:23)
[2018-12-11] MEDS: NA BICARBONATE 8.4% 50 ML SYG IV (01:36)
[2018-12-11] MEDS: VANCOMYCIN 750 MG (PMX) 250 ML IVPB ×3 (01:40→13:00)
[2018-12-11] MEDS: SOD CHLORIDE 0.9% 1,000 ML IV ×2 (01:41→08:49)
[2018-12-11] MEDS: FENTAnyl (DRIP) 1000 mcg/100mL 100 ML IV (03:35)
[2018-12-11] MEDS: NORepinephrine 8MG/250 ML (PMX 250 ML IV ×3 (03:39→15:23)
[2018-12-11] MEDS: PROPOFOL 100 ML IV ×2 (04:05→16:30)
[2018-12-11 05:39] LABS: HEMOGLOBIN 9.1 g/dl (12.0-16.0); MEAN CORPUSCULAR HEMOGLOBIN 30.7 pg (29.0-33.0); MEAN CORPUSCULAR HGB CONC 30.3 g/dl (32.0-37.0); MEAN CORPUSCULAR VOLUME 101.4 fl (82.0-101.0); MEAN PLATELET VOLUME 11.4 fl (7.4-10.4); NUCLEATED RED BLOOD CELLS% 0.8 /100WBC (0.0-0.0); PLATELET COUNT 224 10^3/UL (140-415); RED BLOOD COUNT 2.96 10^6/ul (4.20-5.40); RED CELL DISTRIBUTION WIDTH 17.7 % (11.5-14.5)
[2018-12-11 05:39] LABS: WHITE BLOOD COUNT 18.8 10^3/ul (4.8-10.8)
[2018-12-11 05:46] LABS: ADD MAN DIFF? YES; POSITIVE DIFF @See below
[2018-12-11 06:19] LABS: ANION GAP 17 (5-13); BLOOD UREA NITROGEN 56 mg/dl (7-20); CALCIUM 7.5 mg/dl (8.4-10.2); CARBON DIOXIDE 20 mmol/L (21-31); CHLORIDE 114 mmol/L (97-110); CREATININE 1.92 mg/dl (0.44-1.00); Estimated GFR 27 mL/min (>60); GLUCOSE 134 mg/dl (70-220); MAGNESIUM 2.6 mg/dl (1.7-2.5); SODIUM 151 mmol/L (135-144)
[2018-12-11] MEDS: PANTOPRAZOLE 40 MG INJ IV (06:27)
[2018-12-11] MEDS: PHENYLephrine 80 MG in DEXTROSE 5% 242 ML IV ×2 (08:40→13:00)
[2018-12-11] MEDS: FERROUS SULFATE 60 MG/ML 5ML CUP GTB (08:41)
[2018-12-11] MEDS: FUROSEMIDE 20 MG TAB GTB (08:41)
[2018-12-11] MEDS: FOLIC ACID 1 MG TAB GTB (08:41)
[2018-12-11] MEDS: THIAMINE 100 MG TAB GTB (08:41)
[2018-12-11] MEDS: QUETIAPINE 25 MG TAB PO (08:49)
[2018-12-11] MEDS: AZTREONAM 1 GM/NS (PMX) 50 ML IVPB (08:53)
[2018-12-11] MEDS: LEVETIRACETAM (100 MG/ML) 5ML CUP GTB (08:54)
[2018-12-11] MEDS: VASOPRESSIN 60 UNIT in DEXTROSE 5% 57 ML IV ×2 (09:00→11:33)
[2018-12-11] MEDS: BUDESONIDE (NEB) 0.5MG/2ML AMP INH (09:00)
[2018-12-11 09:45] LABS: ANISOCYTOSIS 1+ (0-0); BAND NEUTROPHILS #M 5.8 10^3/ul (0.0-0.6); BAND NEUTROPHILS % (M) 31 % (0-4); BURR CELLS 2+ (0-0); ERYTHROBLAST% (NRBC) (M) 1 % (0-0); GIANT THROMBO% (M) 13 % (0-0); LYMPHOCYTES #M 3.1 10^3/ul (0.8-2.9); LYMPHOCYTES % (M) 17 % (15-51); MONOCYTE #M 0.3 10^3/ul (0.3-0.9); MONOCYTES % (M) 2 % (0-11); MYELOCYTES #M 0.1 10^3/ul (0.0-0.0); MYELOCYTES % (M) 1 % (0-0); OVALOCYTES 1+ (0-0); PLATELET ESTIMATE NORMAL; POIKILOCYTOSIS 1+ (0-0); POLYCHROMASIA 1+ (0-0); PROMYELOCYTES #M 0.3 10^3/ul (0-0); PROMYELOCYTES % (M) 2 % (0-0); REACTIVE LYMPHOCYTES #M 0.5 10^3/ul (0.0-0.0); REACTIVE LYMPHOCYTES% (M) 3 % (0-0); SEG NEUT #M 9.6 10^3/ul (1.6-7.5); SEGMENTED NEUTROPHILS (M) % 45 % (39-77); SMUDGE%M 9 % (0-0)
== END 2018-12-11 15:55 | disposition expired | DRG 871 ==
LOC: ICU 12-10 02:12 → E/R 23:10
PROVIDERS: Pediatrics Neonatal-Perinatal Medicine
PROC: 06HM33Z Insertion of Infusion Device into Right Femoral Vein, Percutaneous Approach (ICD-10-PCS; principal; 2018-12-10)
PROC: B54BZZA Ultrasonography of Right Lower Extremity Veins, Guidance (ICD-10-PCS; 2018-12-10)
PROC: 5A1935Z Respiratory Ventilation, Less than 24 Consecutive Hours (ICD-10-PCS; 2018-12-10)
PROC: 30233N1 Transfusion of Nonautologous Red Blood Cells into Peripheral Vein, Percutaneous Approach (ICD-10-PCS; 2018-12-11)
DX: A41.9 Sepsis, unspecified organism (principal); J18.9 Pneumonia, unspecified organism; J96.92 Respiratory failure, unspecified with hypercapnia; R65.21 Severe sepsis with septic shock; J96.21 Acute and chronic respiratory failure with hypoxia; N39.0 Urinary tract infection, site not specified; Z99.11 Dependence on respirator [ventilator] status; G93.40 Encephalopathy, unspecified; Z93.0 Tracheostomy status; E87.5 Hyperkalemia; R13.10 Dysphagia, unspecified; Z93.1 Gastrostomy status; I10 Essential (primary) hypertension; I25.10 Atherosclerotic heart disease of native coronary artery without angina pectoris; G40.909 Epilepsy, unspecified, not intractable, without status epilepticus; D64.9 Anemia, unspecified; Z66 Do not resuscitate; B96.20 Unspecified Escherichia coli [E. coli] as the cause of diseases classified elsewhere; Z95.0 Presence of cardiac pacemaker
CPT/HCPCS: 36415; 36430; 36600; 71045; 80048; 80053; 80202; 81001; 82803; 82962; 83036; 83605; 83735; 84484; 85025; 85610; 85730; 86850; 86900; 86901; 86920; 87040-91; 87081; 87086; 93005; 94002; 94003; 94640; 96374; 96375; 96376; 99285-25